=== PATIENT | female | born 1960 | race Caucasian/White ===

== ENCOUNTER 2023-09-28 18:27 | Inpatient (IN) | payer OTHER, SELFPAY ==
[2023-09-28] VITALS (10 sets, daily range): BP systolic 84–164; BP diastolic 44–93; BMI 20.1; BMI 21.3
[2023-09-28 13:45] LABS: % Basophils 0.3 % (0-2); % Eosinophils 1.9 % (0-6); % Immature Granulocytes 0.5 % (0-0.5); % Lymphocytes 15.6 % (20.5-51.1); % Monocytes 4.7 % (1.7-9.3); Absolute Basophils 0.1 10^3/uL (0-0.2); Absolute Eosinophils 0.3 10^3/uL (0-0.7); Absolute Immature Granulocytes 0.1 10^3/uL (0-0.05); Absolute Lymphocytes 2.3 10^3/uL (1.2-3.4); Absolute Monocytes 0.7 10^3/uL (0.1-0.6); Absolute Neutrophils 11.6 10^3/uL (1.4-6.5); Hematocrit 44.1 % (37.0-47.0); Hemoglobin 15.1 g/dL (12.0-16.0); Mean Corp Hgb Conc. 34.2 g/dL (33.0-37.0); Mean Corpuscular Hgb 31.3 pg (27.0-31.0); Mean Corpuscular Volume 91.3 fL (81.0-99.0); Mean Platelet Volume 9.7 fL (7.4-10.4); Nucleated Red Blood Cells % 0 %; Platelet Count 444 10^3/uL (130-400); Red Blood Cell Count 4.83 10^6/uL (4.20-5.40); Red Cell Dist. Width 13.1 % (11.5-14.5)
[2023-09-28 14:04] LABS: Blood Urea Nitrogen 49 mg/dl (7-17); Calcium 10.1 mg/dl (8.4-10.2); Carbon Dioxide 17 mmol/L (22-30); Chloride 106 mmol/L (98-107); Estimated Creatinine Clearance 18 ml/min; Glucose 153 mg/dl (70-99); Sodium 138 mmol/L (135-145); eGFR 20.24
[2023-09-28 14:41] LABS: Lactic Acid 1.2 mmol/L (0.7-2.0)
[2023-09-28 14:42] LABS: Lipase 183 U/L (23-300); Salicylate < 1.0 mg/dl (2.0-20.0)
[2023-09-28 14:44] LABS: Alcohol None Detected
[2023-09-28 14:53] LABS: Acetaminophen < 10 ug/ml (10-30)
[2023-09-28 14:55] LABS: COVID-19 Antigen Negative (Negative)
[2023-09-28 15:24] LABS: Troponin I 0.024 ng/ml
[2023-09-28 15:31] LABS: Urine Albumin 1+ (Neg - Trace); Urine Bilirubin 2+ (Negative); Urine Character Slightly Cloudy (Clear); Urine Color Yellow; Urine Glucose Negative (Negative); Urine Ketone 1+ (Negative); Urine Leukocyte Trace (Negative); Urine Nitrite Negative (Negative); Urine Occult Blood Trace (Negative); Urine Specific Gravity 1.025 (<1.030); Urine Urobilinogen 1+ (Neg - 1+)
[2023-09-28 15:35] LABS: Amphetamines Negative (Negative); Barbiturates Negative (Negative); Benzodiazepines Positive (Negative); Buprenorphine Negative (Negative); Cocaine Negative (Negative); Marijuana Positive (Negative); Methadone Negative (Negative); Methamphetamines Negative (Negative); Opiates Negative (Negative); Phencyclidine Negative (Negative); Tricyclic Antidepressants Positive (Negative)
[2023-09-28] MEDS: NSS 1000 IV ×2 (15:44→17:15)
[2023-09-28] MEDS: ZOFRAN 4 MG IV (15:46)
[2023-09-28 15:55] LABS: Fentanyl, Urine Negative (Negative)
[2023-09-28 15:58] LABS: ALT (SGPT) 23 U/L (0-35); AST (SGOT) 31 U/L (14-36); Albumin 4.7 g/dl (3.5-5.0); Alkaline Phosphatase 101 U/L (38-126); Direct Bilirubin 0.7 mg/dl (0.0-0.4); Potassium 4.8 mmol/L (3.5-5.1); Total Bilirubin 0.7 mg/dl (0.2-1.3); Total Protein 7.6 g/dl (6.3-8.2)
--- NOTE | 2023-09-28 15:58 | ED.GENMED ---
History of Present Illness
<Paola Fountain PA-C - Last Filed: 09/28/23 22:01>
General
Chief Complaint: Change in Mental Status
Source: patient and family
Exam Limitations: clinical condition
Time Seen by Provider: 09/28/23 13:33
Nursing documentation reviewed up to this point in time: agreed with
Travel History
Have you had any contact with someone who has COVID-19?: No
Do you have any symptoms of coronavirus? Fever > 100 degrees, chills, cough, shortness of breath, sore throat, loss of taste or smell, muscle aches, or headache?: No
History of Present Illness
History of Present Illness:
Patient presents with her son, she is not able to give much reliable history. She is 63 years old coming in for altered mental status, going on probably several days. She has a remote history of opiate dependence when her children were in their
teens. Patient was originally staying with someone and then got kicked out of that house, went to her daughter's house last week for 3 days from Wednesday to Wednesday, the and 24 September where she was found to be stumbling around the house and
seemingly intoxicated. The daughter ended up finding Valium tabs on the ground. She googled it as a pill identifier and they were 10 mg Valium's. She told her she could no longer stay there because daughter has a baby at home. so she has been
with her half sister since then. the half sister says she has been disheveled and goofy, then she may have fallen at 2 am, sister heard a thumb and pt was up walking around
then she woke up and checked on her and she was vomiting
pt is not known to drink alcohol
she struggles with depression and has been depressed
they are unclear if she is taking any of her meds, had a large bag of meds in her possession which are duplicates and exppired.
she has since sounds like he has been somehow getting Valium not prescribed to her
Patient's family member brought in prescriptions that the patient is been carrying around, it seems that she does not take her medications as there are many duplicates of her blood pressure and diabetic medication but in particular she has been
prescribed sertraline 50 mg tablets daily, buspirone 10 mg tablets twice a day, Seroquel either 50 or 100 mg at bedtime, Trileptal 150 every 12, trazodone 1 tablet 100 mg at bedtime, amitriptyline 50 mg at bedtime, fluoxetine 40 mg daily, bupropion
1 tablet daily 150 mg XL, and duloxetine 60 mg, these bottles are from a variable amounts of time, some from 2019 and are partially full
pt is wacky and not able to answer wel lireiably
she is tearful
dry looking mm
said she was nauseated
Past History
<Paola Fountain PA-C - Last Filed: 09/28/23 22:01>
Past History
ED Past Medical History: HTN, Hypercholesterolemia, Seizures and Psychiatric
Social History
Drug: Marijuana and Narcotics
Review of Systems
<Paola Fountain PA-C - Last Filed: 09/28/23 22:01>
Review of Systems
Other source history: family
All Other Systems: Not applicable
Phy Exam
<Paola Fountain PA-C - Last Filed: 09/28/23 22:01>
Physical Exam
Physical Exam:
GENERAL: Alert , tearful, wacky, shifting a lot, startles eaasily
HEAD: NCAT
EYE: pupils equal and reactive, no nystagmus, no photophobia
NECK: Supple,full rom, nontender, not stiff
ENT: o/p clr, very dry mouth
CARDIAC: Regular rate and rhythm . no edema
LUNGS: Clear breath sounds bilaterally, no acute respiratory distress, no wheezes/rales/rhonchi
ABDOMEN: Soft, without focal tenderness, no r/g, no cvat
NEUROLOGICAL: Alert and orientedx 2; disoriented to time and situation; trouble focusing; tangential; tearful; cn intact, no facial asymmetry, 5/5 strength in UE/LE, sensation intact, neg pronator drift
SKIN: Warm and dry, skin intact.
MUSCULOSKELETAL: No edema, well perfused.
PSYCH: Normal and appropriate interaction.
Course
<Paola Fountain PA-C - Last Filed: 09/28/23 22:01>
Orders/Labs/Results
Orders:
Orders
09/28/23 13:37
Basic Metabolic Panel Urgent
Complete Blood Count/With Diff Urgent
Glycohemoglobin (HgbA1c) Urgent
09/28/23 13:55
CT Head W/o Iv Contrast Urgent
Comment:
Reason For Exam: ams, unclear if fall;
Cardiac Monitoring- Treatment ONCE
Straight cath- Treatment ONCE
0.9% Sodium Chloride 1000 ml [Nss] 1,000 ml IV BOLUS
Ondansetron Injectable [Zofran] 4 mg IV NOW STA
09/28/23 13:56
Electrocardiogram (*1) Stat
Reason for Study: Other
Other Reason for Exam: neuro symptoms
EKG- Treatment ONCE
09/28/23 14:13
CT Chest/abd/pel Wo Iv Cont Urgent
Comment:
Reason For Exam: ams, fidencio, vomiting, possible fall
09/28/23 14:19
Acetaminophen Urgent
Alcohol Urgent
Lactic Acid Urgent
Lipase Urgent
Dgvwy-Xess-Cpqoqpp Urgent
Comment: ADD ON
Magnesium Urgent
Comment: ADD ON
Phosphorus Urgent
Comment: ADD ON
Potassium Urgent
Comment: ADD ON
Salicylate Urgent
Blood Culture Q30M
HAL Source: Blood/Venous
Specimen Description:
Influenza A+B Rapid Molecular Urgent
HAL Source: Nasal Swab
Specimen Description:
09/28/23 14:21
COVID-19 Antigen Urgent
Source: Nasal Swab
09/28/23 14:49
Troponin I Urgent
Blood Culture Q30M
HAL Source: Blood/Venous
Specimen Description:
09/28/23 Dinner
NPO
Allow oral meds: No
Allow clear liquids: No
09/28/23 15:04
Drug Screen, Urine [Urine Drug Abuse Screen] Urgent
Date Specimen was Collected: 09/28/23
Time Specimen was Collected: 15:02
Fentanyl, Urine Urgent
Urinalysis Reflex To Culture Urgent
Date Specimen was Collected: 09/28/23
Time Specimen was Collected: 15:02
Urine Creatinine Urgent
Date Specimen was Collected: 09/28/23
Time Specimen was Collected: 15:02
Comment: ADD ON
Urine Microscopic Reflex Cult Urgent
Urine Sodium Urgent
Date Specimen was Collected: 09/28/23
Time Specimen was Collected: 15:02
Comment: ADD ON
Urine Culture Urgent
HAL Source: U
Specimen Description:
Date Specimen was Collected: 09/28/23
Time Specimen was Collected: 15:02
09/28/23 15:07
Add On- LAB Urgent
Comments:: to 14:19 specimen (1st specimen was reported hemolyzed)
Tests Added?: K + LFT's
09/28/23 15:58
diazePAM [Valium Injection] 5 mg IV NOW STA
09/28/23 16:01
diazePAM [Valium Injection] 2 mg IV NOW STA
09/28/23 16:32
CefTRIAXone [Rocephin] 1,000 mg IV NOW STA
09/28/23 17:04
Add On- LAB Urgent
Tests Added?: urine sodium, urine creatinine
09/28/23 17:05
0.9% Sodium Chloride 1000 ml [Nss] 1,000 ml IV BOLUS
09/28/23 17:22
Add On- LAB Routine
Tests Added?: magnesium, phosphorous
09/28/23 17:43
Admit/Transfer Patient As Directed
Co-Sign Provider:
Level of Care: Inpatient admission
Assign to:: Telemetry
Physician / Group: Jen Negrete
Diagnosis: benzodiazepine withdrawal
Reason for Telemetry: Chest Pain syndromes
Date to Stop Telemetry: 09/30/23
Time to Stop Telemetry: 11:00
Reason for Hospitalization: benzodiazepine withdrawal
Expected length of stay greater than two midnights?: Yes
ELOS- Estimated Length of Stay in days: 3
I certify the patient meets the requirements for IP care: Yes
09/28/23 17:45
Code Status As Directed
Resuscitation Status: Full Code
09/28/23 18:06
Add On- LAB Urgent
Tests Added?: alcohol
09/28/23 20:31
0.9% Sodium Chloride [Nss (Preservative Free)] See Protocol IV PRN PRN
Acetaminophen [Tylenol/Feverall] 650 mg RECTAL Q4HPRN PRN
Acetaminophen [Tylenol] 650 mg PO Q4HPRN PRN
Dextrose 50%-Water [Dextrose 50% Syringe] 12.5 grams IV [id number] PRN
FOLic ACID [Folvite] 1 mg 0.9% Sodium Chloride 50 ml [Nss] 50 ml IV DAILYPRN
Glucagon [GlucaGen] 1 mg IM PRN PRN
Heparin 5,000 units SC Q12
Lactated Ringers [Lr] 1,000 ml IV 125 mls/hr
Lorazepam [Ativan] 1 mg IV Q1HPRN PRN
Lorazepam [Ativan] 1 mg IV Q2HPRN PRN
Lorazepam [Ativan] 2 mg IV Q1HPRN PRN
Thiamine Injection 200 mg IV Q12
09/28/23 20:31
Add On- LAB Routine
Tests Added?: HgbA1C to today's lab
Case Management Consult Once
Case Management Consult: Other
Comment: Substance abuse counseling
DIETARY CONSULT Routine
Reason for Consult: Nutrition support, possible refeeding guidelines
PSYCHIATRY CONSULT Routine
Consulting Provider: Josh Camilo
Was physician already notified: Yes
Activity As Directed
Activity Level: As Tolerated
Bedside Glucose Monitoring As Directed
Frequency: AC&HS
Comment: Change to q6h if pt on TPN, tube feeding or not eating
MSAS SCORE As Directed
MSAS Score 0-4: Repeat MSAS every 2 hours until 0-4 for three consecutive assessments, then every 4 hours x 48
hours.
MSAS Score 5-7: For MILD withdrawl symptoms. Repeat MSAS and RASS every 2 hours
MSAS Score 8-11: For MODERATE withdrawal symptoms. Repeat MSAS and RASS every 1 hour. Consider ICU or IMU
level of care.
MSAS Score > 11: For SEVERE withdrawal symptoms. Repeat MSAS and RASS every 1 hour. Notify provider, consider
ICU level of care.
MSAS Additional Instructions: If no improvement or no decrease in score from severe to moderate within 12
hours, consult psychiatry
MSAS Notify Provider: Notify provider if patient requires more than 10 mg of Lorazepam in eight hour period.
Nursing to Place Non Medication Order As Directed
Physician Order: please do swallow screen when patient more awake and have cross cover order diabetic diet if
passes
Vital Signs As Directed
Frequency: Per unit guidelines
Speech Screening from [facility] Routine
DX Deep Vein Thrombosis Video Routine
09/29/23 06:00
Complete Blood Count/With Diff IN AM
Comprehensive Metabolic Panel IN AM
Magnesium IN AM
TSH IN AM
Vitamin B12 IN AM
09/29/23 07:30
Insulin Aspart Corrective Low [Novolog Flexpen-Low Resistance] See Protocol SC AC
09/29/23 08:00
FOLic ACID [Folvite] 1 mg PO DAILY
09/29/23 18:00
CefTRIAXone [Rocephin] 1,000 mg IV Q24H
09/30/23 11:00
DC Protocol for Telemetry ONCE
10/01/23 20:00
Thiamine HCl [Vitamin B1] 100 mg PO BID
Abnormal Lab Results
09/28/23 09/28/23 09/28/23
13:37 14:19 15:04
WBC 15.0 H 10^3/uL
(4.8-10.8)
MCH 31.3 H pg
(27.0-31.0)
Plt Count 444 H 10^3/uL
(130-400)
Abs Immat Gran (auto) 0.1 H 10^3/uL
(0-0.05)
Absolute Neuts (auto) 11.6 H 10^3/uL
(1.4-6.5)
Absolute Monos (auto) 0.7 H 10^3/uL
(0.1-0.6)
Neutrophils % 77.0 H %
(42.2-75.2)
Lymphocytes % 15.6 L %
(20.5-51.1)
Carbon Dioxide 17 L mmol/L
(22-30)
BUN 49 H mg/dl
(7-17)
Creatinine 2.6 H mg/dL
(0.6-1.0)
Glucose 153 H mg/dl
(70-99)
Phosphorus 7.5 H mg/dl
(2.5-4.5)
Direct Bilirubin 0.7 H mg/dl
(0.0-0.4)
Urine Ketones 1+ A
(Negative)
Ur Occult Blood Reflex Trace A
(Negative)
Urine Bilirubin 2+ A
(Negative)
Leukocyte Esterase Rfl Trace A
(Negative)
Urine RBC 3-6 A /HPF
(0-2)
Urine WBC (Reflex) 21-25 A /HPF
(0-5)
Urine Bacteria (Reflex) Moderate A
(Negative)
Urine Albumin (Reflex) 1+ A
(Neg - Trace)
Salicylates < 1.0 L mg/dl
(2.0-20.0)
Acetaminophen < 10 L ug/ml
(10-30)
Ur Tricyclics Screen Positive H
(Negative)
U Benzodiazepines Scrn Positive H
(Negative)
U Marijuana (THC) Screen Positive H
(Negative)
09/28/23 13:37
09/28/23 14:19
Vital Signs
Initial and Last Documented VS:
Initial Vital Signs
Temp Pulse Resp BP Pulse Ox
97.7 F 61 19 124/93 96
09/28/23 12:24 09/28/23 12:24 09/28/23 12:24 09/28/23 12:24 09/28/23 12:24
Last Documented Vital Signs
Temp Pulse Resp BP Pulse Ox
97.4 F 72 16 164/86 98
09/28/23 21:05 09/28/23 21:05 09/28/23 21:05 09/28/23 21:05 09/28/23 21:05
<Robson Rae MD - Last Filed: 09/28/23 17:28>
Orders/Labs/Results
Orders:
Orders
09/28/23 13:37
Basic Metabolic Panel Urgent
Complete Blood Count/With Diff Urgent
Glycohemoglobin (HgbA1c) Urgent
09/28/23 13:55
CT Head W/o Iv Contrast Urgent
Comment:
Reason For Exam: ams, unclear if fall;
Cardiac Monitoring- Treatment ONCE
Straight cath- Treatment ONCE
0.9% Sodium Chloride 1000 ml [Nss] 1,000 ml IV BOLUS
Ondansetron Injectable [Zofran] 4 mg IV NOW STA
09/28/23 13:56
Electrocardiogram (*1) Stat
Reason for Study: Other
Other Reason for Exam: neuro symptoms
EKG- Treatment ONCE
09/28/23 14:13
CT Chest/abd/pel Wo Iv Cont Urgent
Comment:
Reason For Exam: ams, fidencio, vomiting, possible fall
09/28/23 14:19
Acetaminophen Urgent
Alcohol Urgent
Lactic Acid Urgent
Lipase Urgent
Ulebs-Kite-Biumkrg Urgent
Comment: ADD ON
Magnesium Urgent
Comment: ADD ON
Phosphorus Urgent
Comment: ADD ON
Potassium Urgent
Comment: ADD ON
Salicylate Urgent
Blood Culture Q30M
HAL Source: Blood/Venous
Specimen Description:
Influenza A+B Rapid Molecular Urgent
HAL Source: Nasal Swab
Specimen Description:
09/28/23 14:21
COVID-19 Antigen Urgent
Source: Nasal Swab
09/28/23 14:49
Troponin I Urgent
Blood Culture Q30M
HAL Source: Blood/Venous
Specimen Description:
09/28/23 Dinner
NPO
Allow oral meds: No
Allow clear liquids: No
09/28/23 15:04
Drug Screen, Urine [Urine Drug Abuse Screen] Urgent
Date Specimen was Collected: 09/28/23
Time Specimen was Collected: 15:02
Fentanyl, Urine Urgent
Urinalysis Reflex To Culture Urgent
Date Specimen was Collected: 09/28/23
Time Specimen was Collected: 15:02
Urine Creatinine Urgent
Date Specimen was Collected: 09/28/23
Time Specimen was Collected: 15:02
Comment: ADD ON
Urine Microscopic Reflex Cult Urgent
Urine Sodium Urgent
Date Specimen was Collected: 09/28/23
Time Specimen was Collected: 15:02
Comment: ADD ON
Urine Culture Urgent
HAL Source: U
Specimen Description:
Date Specimen was Collected: 09/28/23
Time Specimen was Collected: 15:02
09/28/23 15:07
Add On- LAB Urgent
Comments:: to 14:19 specimen (1st specimen was reported hemolyzed)
Tests Added?: K + LFT's
09/28/23 15:58
diazePAM [Valium Injection] 5 mg IV NOW STA
09/28/23 16:01
diazePAM [Valium Injection] 2 mg IV NOW STA
09/28/23 16:32
CefTRIAXone [Rocephin] 1,000 mg IV NOW STA
09/28/23 17:04
Add On- LAB Urgent
Tests Added?: urine sodium, urine creatinine
09/28/23 17:05
0.9% Sodium Chloride 1000 ml [Nss] 1,000 ml IV BOLUS
09/28/23 17:22
Add On- LAB Routine
Tests Added?: magnesium, phosphorous
09/28/23 17:43
Admit/Transfer Patient As Directed
Co-Sign Provider:
Level of Care: Inpatient admission
Assign to:: Telemetry
Physician / Group: Jen Negrete
Diagnosis: benzodiazepine withdrawal
Reason for Telemetry: Chest Pain syndromes
Date to Stop Telemetry: 09/30/23
Time to Stop Telemetry: 11:00
Reason for Hospitalization: benzodiazepine withdrawal
Expected length of stay greater than two midnights?: Yes
ELOS- Estimated Length of Stay in days: 3
I certify the patient meets the requirements for IP care: Yes
09/28/23 17:45
Code Status As Directed
Resuscitation Status: Full Code
09/28/23 18:06
Add On- LAB Urgent
Tests Added?: alcohol
09/28/23 20:31
0.9% Sodium Chloride [Nss (Preservative Free)] See Protocol IV PRN PRN
Acetaminophen [Tylenol/Feverall] 650 mg RECTAL Q4HPRN PRN
Acetaminophen [Tylenol] 650 mg PO Q4HPRN PRN
Dextrose 50%-Water [Dextrose 50% Syringe] 12.5 grams IV [id number] PRN
FOLic ACID [Folvite] 1 mg 0.9% Sodium Chloride 50 ml [Nss] 50 ml IV DAILYPRN
Glucagon [GlucaGen] 1 mg IM PRN PRN
Heparin 5,000 units SC Q12
Lactated Ringers [Lr] 1,000 ml IV 125 mls/hr
Lorazepam [Ativan] 1 mg IV Q1HPRN PRN
Lorazepam [Ativan] 1 mg IV Q2HPRN PRN
Lorazepam [Ativan] 2 mg IV Q1HPRN PRN
Thiamine Injection 200 mg IV Q12
09/28/23 20:31
Add On- LAB Routine
Tests Added?: HgbA1C to today's lab
Case Management Consult Once
Case Management Consult: Other
Comment: Substance abuse counseling
DIETARY CONSULT Routine
Reason for Consult: Nutrition support, possible refeeding guidelines
PSYCHIATRY CONSULT Routine
Consulting Provider: Josh Camilo
Was physician already notified: Yes
Activity As Directed
Activity Level: As Tolerated
Bedside Glucose Monitoring As Directed
Frequency: AC&HS
Comment: Change to q6h if pt on TPN, tube feeding or not eating
MSAS SCORE As Directed
MSAS Score 0-4: Repeat MSAS every 2 hours until 0-4 for three consecutive assessments, then every 4 hours x 48
hours.
MSAS Score 5-7: For MILD withdrawl symptoms. Repeat MSAS and RASS every 2 hours
MSAS Score 8-11: For MODERATE withdrawal symptoms. Repeat MSAS and RASS every 1 hour. Consider ICU or IMU
level of care.
MSAS Score > 11: For SEVERE withdrawal symptoms. Repeat MSAS and RASS every 1 hour. Notify provider, consider
ICU level of care.
MSAS Additional Instructions: If no improvement or no decrease in score from severe to moderate within 12
hours, consult psychiatry
MSAS Notify Provider: Notify provider if patient requires more than 10 mg of Lorazepam in eight hour period.
Nursing to Place Non Medication Order As Directed
Physician Order: please do swallow screen when patient more awake and have cross cover order diabetic diet if
passes
Vital Signs As Directed
Frequency: Per unit guidelines
Speech Screening from [facility] Routine
DX Deep Vein Thrombosis Video Routine
09/29/23 06:00
Complete Blood Count/With Diff IN AM
Comprehensive Metabolic Panel IN AM
Magnesium IN AM
TSH IN AM
Vitamin B12 IN AM
09/29/23 07:30
Insulin Aspart Corrective Low [Novolog Flexpen-Low Resistance] See Protocol SC AC
09/29/23 08:00
FOLic ACID [Folvite] 1 mg PO DAILY
09/29/23 18:00
CefTRIAXone [Rocephin] 1,000 mg IV Q24H
09/30/23 11:00
DC Protocol for Telemetry ONCE
10/01/23 20:00
Thiamine HCl [Vitamin B1] 100 mg PO BID
Abnormal Lab Results
09/28/23 09/28/23 09/28/23
13:37 14:19 15:04
WBC 15.0 H 10^3/uL
(4.8-10.8)
MCH 31.3 H pg
(27.0-31.0)
Plt Count 444 H 10^3/uL
(130-400)
Abs Immat Gran (auto) 0.1 H 10^3/uL
(0-0.05)
Absolute Neuts (auto) 11.6 H 10^3/uL
(1.4-6.5)
Absolute Monos (auto) 0.7 H 10^3/uL
(0.1-0.6)
Neutrophils % 77.0 H %
(42.2-75.2)
Lymphocytes % 15.6 L %
(20.5-51.1)
Carbon Dioxide 17 L mmol/L
(22-30)
BUN 49 H mg/dl
(7-17)
Creatinine 2.6 H mg/dL
(0.6-1.0)
Glucose 153 H mg/dl
(70-99)
Phosphorus 7.5 H mg/dl
(2.5-4.5)
Direct Bilirubin 0.7 H mg/dl
(0.0-0.4)
Urine Ketones 1+ A
(Negative)
Ur Occult Blood Reflex Trace A
(Negative)
Urine Bilirubin 2+ A
(Negative)
Leukocyte Esterase Rfl Trace A
(Negative)
Urine RBC 3-6 A /HPF
(0-2)
Urine WBC (Reflex) 21-25 A /HPF
(0-5)
Urine Bacteria (Reflex) Moderate A
(Negative)
Urine Albumin (Reflex) 1+ A
(Neg - Trace)
Salicylates < 1.0 L mg/dl
(2.0-20.0)
Acetaminophen < 10 L ug/ml
(10-30)
Ur Tricyclics Screen Positive H
(Negative)
U Benzodiazepines Scrn Positive H
(Negative)
U Marijuana (THC) Screen Positive H
(Negative)
09/28/23 13:37
09/28/23 14:19
Vital Signs
Initial and Last Documented VS:
Initial Vital Signs
Temp Pulse Resp BP Pulse Ox
97.7 F 61 19 124/93 96
09/28/23 12:24 09/28/23 12:24 09/28/23 12:24 09/28/23 12:24 09/28/23 12:24
Last Documented Vital Signs
Temp Pulse Resp BP Pulse Ox
97.4 F 72 16 164/86 98
09/28/23 21:05 09/28/23 21:05 09/28/23 21:05 09/28/23 21:05 09/28/23 21:05
<Paola Fountain PA-C - Last Filed: 09/28/23 22:01>
MDM/Problems Addressed
Differential Diagnosis Includes:
polypharmacy, overdose, intoxication, bz withdrawal, uti, head injury
MDM/Problems Addressed:
[place]o [place] 63 y/o M h/o depression, htn, dm; has been seen by family recently taking 10 mg valiums, many at a time, acting intoxicated; kicked out of some family houses and boyfriend houses recently; family rounded up all the valium they could
find and kept it from her the past 3 days; pt has been wacky, wobbly, a little agitated, tearful, vomiting; i was presuming after hearing that that she could be having some degree of tim withdrawal; she also could be polypharmacy, she takes TCA and
other antidepressants; vitals stable; qtc < 500, cr 2.4 no old cr to compare but no known kidney disease, looks dry; was a little agitated and confused, trouble focusing for me; but otherwise nonfocal neuro exam; ct head/c/a/p neg; uds + for tca,
thc and bz; i ordered 2 mg iv valium jsut in case she was having some bz withdrawal, she was easily drowsy from 5 mg dose.
she is sleepy now but stable; getting ivf; will need psych consult, she isn't having SI but was very depressed; denied any drug abuse
<Paola Fountain PA-C - Last Filed: 09/28/23 22:01>
*Critical Care Note
Total Time (30-74mins, 75-104mins- exclusive of procedures): Not Applicable
ED Attending Note
<Paola Fountain PA-C - Last Filed: 09/28/23 22:01>
-
Portions of this chart may have been created with voice recognition software.� Occasional wrong word or��sound alike� substitutions may have occurred due to the inherent limitations of voice recognition software.
<Robson Rae MD - Last Filed: 09/28/23 17:28>
ED Attending Note
Patient seen and examined by attending physician: Yes
ED Attending Note:
I have seen and evaluated the patient with a prpi-wz-vlke encounter. I have spoken to the advance practicer provider and involved in the medical history, the physical exam, medical decision making.
Evaluation and management service: agree unless noted differently below.
Results interpretation: agree unless noted differently below.
Focused HPI: 63-year-old female with past medical history of polysubstance use (opiates in the past, Valium more recently, also question alcohol) who presents to the emergency room with her family via EMS for evaluation of confusion. Apparently
patient has been bouncing around living with different family members recently in part due to her substance abuse issues mainly with Valium. She reportedly is not prescribed the Valium and obtains illicitly. Apparently this morning patient's
stfwnw-yo-spv found her vomiting and confused. Called EMS to bring her to the hospital. There was apparently a confrontation with patient's daughter recently over the weekend during which daughter threw out all patient's Valium. Unclear whether
she had other drugs available to her and unclear whether there was any ingestion this morning. She has apparently been somewhat depressed recently. There was a question of whether she may have fallen and hurt her head.
Physical exam: Alert but confused. Vital signs normal. No cardiac rubs gallops or murmurs. Lungs clear to auscultation bilaterally. No signs of trauma to the head. Pupils are 4 mm and reactive to light bilaterally. Mucous membranes slightly
dry. Skin slightly dry. No notable edema in her extremities.
Medical Decision Makin-year-old female presents for evaluation of confusion in the setting of recent issues with substance abuse. Vital signs here within normal limits. Exam as above. Labs were sent off including a CBC which shows a slight
leukocytosis and a CMP which shows a creatinine of 2.6�unclear what patient's baseline is. We sent Tylenol and salicylate levels which were both negative. Urinalysis was questionable for infection�will cover given her leukocytosis and change in
mental status. Her UDS was positive for tricyclic, benzos, marijuana. Alcohol level was negative. We sent for CT of the head as well as the chest/abdomen/pelvis given questionable fall and there was no clear acute pathology.
Meningitis/encephalitis always a consideration but patient afebrile with a supple neck somewhat lower suspicion�picture seems more consistent with likely confusion related to polysubstance use. Will hold on lumbar puncture for now. Benzodiazepine
withdrawal is also a consideration given reported history of daughter throwing away patient's Valium however there was no tachycardia or hypertension here�she was given a low-dose of Valium and appeared much more calm subsequently. Regardless will
need monitoring for return to baseline, further workup as indicated should mental status worsen. Case discussed with hospitalist for admission.
Discharge Plan
Departure
Patient Disposition: Admit
Date of Disposition: 09/28/23
Time of Disposition: 16:01
Admit to: Telemetry
Presentation/result/management discussed w/ accepting MD/DO: Hospitalist
Patient with high blood pressure during this ER visit?: No
Condition: Fair
Covid-19: Not Applicable
Discharge Problem:
FIDENCIO (acute kidney injury), Polypharmacy, Benzodiazepine abuse
Interventions
Interventions:
*Risk Screen - Suicide Last Done: 09/28/23 20:42
*Neglect/Abuse Screening Last Done: 09/28/23 14:00
ED- Fall Risk Assessment Last Done: 09/28/23 15:05
*ED COVID-19 Vaccine History Last Done: 09/28/23 20:38
*Nursing Disposition Last Done: 09/28/23 20:20
ED- Neurological Assessment Last Done: 09/28/23 15:05
Discharge Date and Time
Discharge Date/Time: 09/28/23 20:20
[2023-09-28] MEDS: VALIUM INJECTION 5 MG IV (16:06)
[2023-09-28 16:27] LABS: Urine Mucus Moderate
[2023-09-28 16:28] LABS: Urine Bacteria Moderate (Negative); Urine Hyaline Cast >15 /LPF (0-2); Urine Urothelial Cell >30 /LPF (FEW); Urine White Cell 21-25 /HPF (0-5)
--- NOTE | 2023-09-28 16:31 | PHANOTE ---
Med Rec Note:
Multiple medication bottles given to pharmacy technicians by family. Pt had a mixture of recently filled and medications. Unknown what medications pt is actually taking, medications entered into home med list that were filled within the
last year.
Pt had these medications mixed in:
Januvia 100mg x3 bottles, ,Glyburide- Metformin 5-500mg, Metformin 500mg
Folic Acid 1mg x6 bottles
Atorvastatin 80mg, Simvastatin 10mg x3 bottles
Nateglinide 60mg, Nateglinide 120mg x2 bottles
Ondansetron 4mg,
Fluoxetine 40mg x2 bottles, Buspirone 10mg x3 bottles, Bupropion XL 150mg, Sertraline 50mg x5 bottles
Metoprolol Tart 100mg x3 bottles, Metoprolol Succinate 25mg, Amlodipine 10mg, Losartan-HCTZ 100-25mg x7 bottles
Medications given back to family, sorted into , diabetic supplies and not .
--- NOTE | 2023-09-28 16:53 | HPS.HSE ---
Family Physician
-
Family Physician: NOT KNOW UNKNOWN - PT DOES
Chief Complaint
-
change in mental status
History of Present Illness
Ms. Charmaine Savage is a 63 yo woman with hx anxiety, HTN, DM who was brought in by family for being agitated, altered, + vomiting. Patient is sedated on my interview. She is seen at bedside with her two sons who provide history.
Patient recently broke up with her boyfriend and so hasn't had a constant place to live. She has been living at family member's houses. Last week she was at her daughter's who noticed that patient had unprescribed Valium. She took them and
flushed them down the toilet. She then left and stayed at her half sister's house. Patient noticed to be increasingly confused, + vomiting. This morning she was more agitated and so EMS was called.
Per ER report, family brought in medications for patient which include:
sertraline 50 mg tablets daily, buspirone 10 mg tablets twice a day, Seroquel either 50 or 100 mg at bedtime, Trileptal 150 every 12, trazodone 1 tablet 100 mg at bedtime, amitriptyline 50 mg at bedtime, fluoxetine 40 mg daily, bupropion 1 tablet
daily 150 mg XL, and duloxetine 60 mg
Medical History
Past Medical History
Past Medical History: Reports HTN, NIDDM and Psychiatric (anxiety/depression)
Past Surgical History: Reports Other
Social History
Drug: Marijuana
Family History
Family History: Not pertinent
Allergies / Home Medications
Allergies reflects when Allergies were last updated in [facility].
Home Medications with original date entered in [facility]
Allergy/Medication List:
Allergies
Allergy/AdvReac Type Severity Reaction Status Date / Time
No Known Allergies Allergy Unverified 09/28/23 16:02
Home Medications
amitriptyline 50 mg tablet 50 mg PO HS 09/28/23
amlodipine 5 mg tablet 5 mg PO DAILY 09/28/23
aspirin 81 mg tablet,delayed release 81 mg PO DAILY 09/28/23
duloxetine 60 mg capsule,delayed release 60 mg PO DAILY 09/28/23
fexofenadine 180 mg tablet 180 mg PO DAILY 09/28/23
folic acid 1 mg tablet 1 mg PO DAILY 09/28/23
losartan 100 mg-hydrochlorothiazide 25 mg tablet 1 tab PO DAILY 09/28/23
metformin 500 mg tablet 500 mg PO BID 09/28/23
multivitamin-ferrous fumarate-folic acid 18 mg-400 mcg tablet (Centrum Women) 1 tab PO DAILY 09/28/23
omega 3-cap-avd-fish oil 1,000 mg (120 mg-180 mg) capsule (Fish Oil) 1 cap PO TID 09/28/23
oxcarbazepine 150 mg tablet 150 mg PO Q12H 09/28/23
pantoprazole 40 mg tablet,delayed release 40 mg PO DAILY 09/28/23
quetiapine 100 mg tablet 100 mg PO HS 09/28/23
quetiapine 50 mg tablet 50 mg PO HS 09/28/23
quinine-vitamin E capsule 1 - 2 cap PO Q4H PRN leg cramps 09/28/23
sertraline 50 mg tablet 50 mg PO HS 09/28/23
sitagliptin phosphate 100 mg tablet (Januvia) 100 mg PO DAILY 09/28/23
tirzepatide 7.5 mg/0.5 mL subcutaneous pen injector (Mounjaro) 7.5 mg SC WEEKLY 09/28/23
trazodone 100 mg tablet 100 mg PO HS 09/28/23
*awaiting med rec confirmation
Review of Systems
-
History Source: Patient
A 12 point ROS was completed and negative except as noted: Yes
Physical Exam
Vital Signs
Vital Signs
Temp Pulse Resp BP Pulse Ox
97.7 F 65 16 114/47 98
09/28/23 12:24 09/28/23 16:30 09/28/23 14:30 09/28/23 16:00 09/28/23 16:00
Physical Exam
General: No Apparent Distress and Other (lethargic post valium )
HEENT: PERRLA
Respiratory: Clear; No Wheezes
Cardiac: S1/S2 and Regular Rhythm
GI: Soft and Non Tender
Musculoskeletal: No Edema
Skin: Warm and Dry; No Rash
Neuro: Sedated
Psych: Calm
Laboratory Results
-
09/28/23 13:37
09/28/23 14:19
Laboratory Results
Lactic Acid 1.2 mmol/L (0.7-2.0) 09/28/23 14:19
Total Bilirubin 0.7 mg/dl (0.2-1.3) 09/28/23 14:19
AST 31 U/L (14-36) 09/28/23 14:19
ALT 23 U/L (0-35) 09/28/23 14:19
Alkaline Phosphatase 101 U/L (38-126) 09/28/23 14:19
Troponin I 0.024 ng/ml 09/28/23 14:49
Lipase 183 U/L (23-300) 09/28/23 14:19
Data Reviewed
-
Diagnostic Radiology: Report Reviewed by me
Lab Data: Labs Reviewed by me
Impression/Plan
-
Ms. Charmaine Savage is a 63 yo woman with hx anxiety, HTN, DM who was brought in by family for being agitated, altered, tearful in setting of likely benzodiazepine withdrawal.
Triage VS: T 97.7, P 61, RR 19, BP 124/93, SpO2 96%
LABS: WBC 15, Hg 15.1, PLT 444, Na 138, K+ 4.8, CO2 17, BUN 49, Cr 2.6, Glucose 153, salicylates < 1; tylenol < 10
covid negative
flu negative
HEAD CT
IMPRESSION:
No evidence of acute intracranial abnormality.
chest/abdomen/pelvis CT
IMPRESSION: Coronary artery calcifications are present. Please correlate with symptoms of and risk factors for coronary artery disease, with further workup as clinically appropriate.
Mild aortic valvular calcification is noted.
1.5 cm bulla within the inferior aspect of the right middle lobe of the lung.
Status post cholecystectomy with no evidence for biliary ductal dilation.
Mild fatty infiltration of the liver.
Questionable subtle nodular contour of the anterior margin of the left lobe of the liver, and raises the possibility of subtle cirrhosis, although considered a soft finding.
Suggestion of predominantly left-sided fibroid with exophytic component within the uterus, diameter of approximately 6 cm, somewhat limited evaluation without contrast.
Colonic diverticula with no CT evidence of diverticulitis.
MAR: ativan, IVF, IV Zofran, IV Ceftriaxone
Benzodiazepine Withdrawal
Acute Confusion
-patient s/p valium in ER, now sedated
-admit to telemetry
-MSAS with PRN ativan
-psychiatry consult
-IV fluids
-IV thiamine/folate
Acute Kidney Injury
-per sons, patient recently started Ozempic. Vomiting may be from this drug versus withdrawal
-hold Ozempic
-IVF
-F/U urine studies
-daily BMP
Depression
-unclear home meds. need to discuss with patient when she wakes up
-psychiatry consult
-NPO for now
possible UTI
-IV Ceftriaxone given in ER
-continue for now
HTN
DM
-ISS low
*awaiting home med rec
DVT PPx hep subQ
FULL CODE
76 minutes spent on patient evaluation, medical decision making, coordination of care
[2023-09-28] MEDS: ROCEPHIN 1000 MG IV (17:15)
[2023-09-28 18:21] LABS: Urine Sodium 34 mmol/L (30-90)
[2023-09-28 18:32] LABS: Magnesium 2.3 mg/dl (1.6-2.3); Phosphorus 7.5 mg/dl (2.5-4.5)
[2023-09-28] MEDS: HEPARIN 5000 UNITS SC (21:51)
[2023-09-28] MEDS: THIAMINE INJECTION 200 MG IV (21:51)
[2023-09-28] MEDS: LR 1000 IV (22:29)
[2023-09-28] MEDS: ATIVAN 1 MG IV (22:51)
--- NOTE | 2023-09-29 01:07 | PTCARENOTE ---
RN clarified with STAVE LOG RIPSAW OPERATOR about MSAS monitoring vs COWS. Per STAVE LOG RIPSAW OPERATOR continue MSAS monitoring with Ativan.
[2023-09-29 03:21] VITALS: BP 131/70
[2023-09-29 07:00] VITALS: BP 145/76
[2023-09-29 07:16] LABS: ALT (SGPT) 17 U/L (0-35); AST (SGOT) 23 U/L (14-36); Albumin 3.6 g/dl (3.5-5.0); Alkaline Phosphatase 85 U/L (38-126); Blood Urea Nitrogen 39 mg/dl (7-17); Calcium 8.6 mg/dl (8.4-10.2); Carbon Dioxide 18 mmol/L (22-30); Chloride 114 mmol/L (98-107); Estimated Creatinine Clearance 31 ml/min; Glucose 95 mg/dl (70-99); Potassium 4.3 mmol/L (3.5-5.1); Sodium 142 mmol/L (135-145); Total Bilirubin 0.4 mg/dl (0.2-1.3); eGFR 39.16
[2023-09-29 07:42] LABS: TSH 0.25 uIU/ml (0.47-4.68)
[2023-09-29 07:59] LABS: Glucose - Point of Care 116 mg/dl (70-99)
[2023-09-29 08:01] LABS: Vitamin B12 > 1000 pg/ml (239-931)
[2023-09-29] MEDS: NOVOLOG FLEXPEN-LOW RESISTANCE SC ×3 (08:18→17:16)
[2023-09-29 08:21] LABS: % Basophils 0.5 % (0-2); % Eosinophils 3.1 % (0-6); % Immature Granulocytes 0.3 % (0-0.5); % Lymphocytes 37.5 % (20.5-51.1); % Monocytes 7.3 % (1.7-9.3); % Neutrophils 51.3 % (42.2-75.2); Absolute Eosinophils 0.2 10^3/uL (0-0.7); Absolute Lymphocytes 2.2 10^3/uL (1.2-3.4); Absolute Monocytes 0.4 10^3/uL (0.1-0.6); Hematocrit 33.8 % (37.0-47.0); Mean Corp Hgb Conc. 34.6 g/dL (33.0-37.0); Mean Corpuscular Hgb 32.1 pg (27.0-31.0); Mean Corpuscular Volume 92.6 fL (81.0-99.0); Mean Platelet Volume 10.1 fL (7.4-10.4); Nucleated Red Blood Cells % 0 %; Platelet Count 288 10^3/uL (130-400); Red Blood Cell Count 3.65 10^6/uL (4.20-5.40); White Blood Cell Count 5.8 10^3/uL (4.8-10.8)
[2023-09-29 08:42] LABS: Hemoglobin 11.7 g/dL (12.0-16.0)
[2023-09-29] MEDS: NSS (PRESERVATIVE FREE) 0.5 ML IV ×3 (09:36→23:54)
[2023-09-29] MEDS: ATIVAN 1 MG IV ×3 (09:36→23:55)
[2023-09-29] MEDS: HEPARIN 5000 UNITS SC ×2 (09:37→20:04)
[2023-09-29] MEDS: THIAMINE INJECTION 200 MG IV ×2 (09:37→20:04)
[2023-09-29] MEDS: FOLVITE 1 MG PO (09:37)
[2023-09-29 09:42] LABS: Glycohemoglobin (HgbA1c) 7.8 % (4.0-5.6)
[2023-09-29] MEDS: LR IV (09:43)
--- NOTE | 2023-09-29 11:32 | W.PN.HOSP.TC ---
Today's Communication/Plan
-
see plan
*called son, Ed, no one picked up. Will try again later
Assessment / Plan
Assessment / Plan
Ms. Charmaine Savage is a 63 yo woman with hx anxiety, HTN, DM who was brought in by family for being agitated, altered, tearful in setting of likely benzodiazepine withdrawal.�
HEAD CT
IMPRESSION:
No evidence of acute intracranial abnormality.
chest/abdomen/pelvis CT
IMPRESSION: Coronary artery calcifications are present. Please correlate with symptoms of and risk factors for coronary artery disease, with further workup as clinically appropriate.
Mild aortic valvular calcification is noted.
1.5 cm bulla within the inferior aspect of the right middle lobe of the lung.
Status post cholecystectomy with no evidence for biliary ductal dilation.
Mild fatty infiltration of the liver.
Questionable subtle nodular contour of the anterior margin of the left lobe of the liver, and raises the possibility of subtle cirrhosis, although considered a soft finding.
Suggestion of predominantly left-sided fibroid with exophytic component within the uterus, diameter of approximately 6 cm, somewhat limited evaluation without contrast.
Colonic diverticula with no CT evidence of diverticulitis.
MAR: ativan, IVF, IV Zofran, IV Ceftriaxone
Benzodiazepine Withdrawal
Acute Confusion
-patient s/p valium in ER
-admitted to telemetry
-MSAS with PRN ativan
-psychiatry consult
-IV fluids
-IV thiamine/folate
-mentation improved today
Acute Kidney Injury
Metabolic acidosis
-per sons, patient recently started Ozempic.� Vomiting may be from this drug versus withdrawal
-hold Ozempic
-FeNa pre-renal etiology
-change fluids to sodium bicarb
-creatinine improving
Depression
-unclear home meds.�need to complete med rec
-psychiatry consult
possible UTI
-IV Ceftriaxone given in ER
-continue for now, F/U culture
HTN
DM
-ISS low
*awaiting home med rec
DVT PPx hep subQ
FULL CODE
Anticipated Discharge: 24 - 48 hours
Subjective/Interval History
-
Date of Service: September 29, 2023
patient seems to be more clear today
states she was prescribed Valium in past
complains of upper abdominal pain, able to eat all breakfast and had normal BM this morning
Objective Data
-
Labs:
Laboratory Results
09/29/23
05:59
WBC 5.8
Hgb 11.7 L D
Hct 33.8 L
Plt Count 288 D
Sodium 142
Potassium 4.3
Chloride 114 H
Carbon Dioxide 18 L
BUN 39 H
Creatinine 1.5 H
Glucose 95
Calcium 8.6 D
Total Bilirubin 0.4
AST 23
ALT 17
Alkaline Phosphatase 85
Vital Signs:
Vital Signs
Temp Pulse Resp BP Pulse Ox
98.5 F 78 18 145/76 100
09/29/23 07:00 09/29/23 07:00 09/29/23 07:00 09/29/23 07:00 09/29/23 07:00
I&O
09/28/23 09/29/23 09/30/23
06:59 06:59 06:59
Output Total 200 / 200
Balance -200 / -200
Review of Systems
-
History Source: Patient
All other systems: Reviewed and negative
Physical Exam
-
General: No Apparent Distress
HEENT: PERRLA
Respiratory: Clear to Auscultation; Negative Wheezes
Cardiac: Regular Rhythm and S1/S2
GI: Soft and Nontender
Musculoskeletal: No Edema
Skin: Warm and Dry; Negative Rash
Neuro: AO x 3
Psych: Anxious
Data Reviewed
-
Diagnostic Radiology: Report Reviewed by me
Labs: Labs Reviewed by me
[2023-09-29 11:45] VITALS: BP 172/89
[2023-09-29] MEDS: SODIUM BICARBONATE 1150 MEQ IV (12:23)
[2023-09-29 12:28] LABS: Glucose - Point of Care 131 mg/dl (70-99)
--- NOTE | 2023-09-29 12:47 | CM ---
Met with patient and her son, Tesfaye Ortiz, #[phone], at the bedside.
Pharmacy: [facility], [address]
PCP: Matt Antony; [address], [address] [place] [address], [place], [facility] # [phone] (Admissions notified to update chart)
Patient was living in a home in [place] with her boyfriend. Son reported that patient cannot return to the home and has no place to live at this time.
Patient reports that she has 2 sons and 2 daughters.
Reports that she has depression.
Patient reported that she ambulates with a walker and was using a Continuous Glucose Monitor.
Patient also reported that she has had Home Care services in the past but could not remember the agency.
Patient does not drive
Patient agreeable to [facility]; Lizzette notified and will see the patient
[2023-09-29 13:50] LABS: Free T4 1.04 ng/dl (0.78-2.19)
--- NOTE | 2023-09-29 13:56 | W.PN.UPDATE ---
Update Note
Progress Note Update
patient seen chart reviewed. son at bedside. patient is a 63 year old woman w hx of depression and anxiety. she was admitted bc 'confusion'. she had split w bf which son says was a conflicted relationship and left the home they shared. she stayed
w a succession of other relatives. family noted increasing confusion and patient dropped a pill which d said she looked up on line and it was valium 10 mg. the patient denies the use of bzp and etoh which was a concern. i did check the pdmp and
did not see recent bzp scrips. a bag of pills was brought in by family which included sertraline buspar wellbutrin seroquel trileptal trazodone elavil prozac and cymbalta. the patient is still rather confused but she did say she was not taking
any of the above recently. she adamantly denies drinking to excess says one or two drinks if she goes out w friends but not daily. she has been very stressed but the breakup but does not says she is depressed. her appetite is okay. sleep is poor.
she denies suicidal thoughts. overt psychosis not noted but she did have to look at the sign in the room to tell the date and when i asked what holiday just passed she said her granddaughter's birthdays. she also struggled at times to put
sentences together....but son does says he is better compared to yesterday
past psych hx patient says many years ago rx for depression not recently although as stated she came w a bag of meds including psych medications
substance abuse see above patient denies abuse of etoh she denies abuse of drugs or alcohol. uds + for i did check pdmp and did not see scrips for controlled substances in the last year except a scrip for lacosamine uds + for bzp mj and tca
medical hx hx dm htn allergies noted cr 1.5 bun 39 hx hld and possibly sz disorder bp is high 172/89 afebrile pulse 89 ecg nl fatty liver possible cirrhotic changes ? uti started ceftriaxone
fh father was alcoholic
social hx patient w four children one present in room. retired from [employer] states has + friends denies abuse hx patient is family concerned patient will be homeless [place]. 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
mse alert to person place time but looked at calendar in room for time speech nl rate and tone most of the time. she hesitated in answering many questions as though she could not recall but as stated son feels she is better than on admit. thought
process generally goal oriented although derailed a bit when could not remember denies psychosis mood is neutral affect appropriate overall no overt psychosis averf intelligence insight judgment fair
dx tme ?? cause uti? etoh? hx depression and anxiety
recommendations patient denying hx etohism and drug use. says she saw the destruction etoh wrought for her dad and is very mindful. pdmp supports that she is not receiving opiates or bzp recently. would monitor via msas. could this be UTI?
case mgt consult re patient domeciled. psych will follow . at present would not add any psych meds.
[2023-09-29 14:01] LABS: Hemoglobin 13.4 g/dL (12.0-16.0)
[2023-09-29 15:00] VITALS: BP 169/83
--- NOTE | 2023-09-29 15:38 | PTCARENOTE ---
Pt c/o nausea and vomitting. Requested PRN Zofran order from Dr. Negrete. Order rec'd and given. Pt home meds brought in by son , reconciled by Joaquina from Pharmacy and taken to Pharmacy by Joaquina for us to hold until DC.
[2023-09-29] MEDS: ZOFRAN 4 MG IV (15:40)
[2023-09-29 17:09] LABS: Glucose - Point of Care 131 mg/dl (70-99)
[2023-09-29] MEDS: ROCEPHIN 1000 MG IV (17:49)
[2023-09-29] MEDS: STERILE WATER FOR INJECTION 10 ML IV (17:49)
[2023-09-29 19:29] VITALS: BP 157/55
[2023-09-29 21:32] LABS: Glucose - Point of Care 147 mg/dl (70-99)
[2023-09-29 23:33] VITALS: BP 170/85
[2023-09-30] VITALS (8 sets, daily range): BP systolic 115–155; BP diastolic 58–101; PULSE 102–106; O2SAT 96–97
--- NOTE | 2023-09-30 01:49 | PTCARENOTE ---
Patient having paranoid behaviors and insisting staff if talking about her and calling her family members talking about her. Patient reassured these thoughts and accusations were untrue. When staff walks past room in the hallway, patient calling to
see what staff member is doing and why they are doing so.
[2023-09-30] MEDS: ATIVAN 1 MG IV (02:11)
[2023-09-30] MEDS: NSS (PRESERVATIVE FREE) 0.5 ML IV (02:11)
[2023-09-30] MEDS: SODIUM BICARBONATE 1150 MEQ IV (04:53)
[2023-09-30 08:01] LABS: Glucose - Point of Care 109 mg/dl (70-99)
[2023-09-30 08:07] LABS: Blood Urea Nitrogen 22 mg/dl (7-17); Calcium 9.5 mg/dl (8.4-10.2); Carbon Dioxide 30 mmol/L (22-30); Chloride 104 mmol/L (98-107); Estimated Creatinine Clearance 51 ml/min; Glucose 95 mg/dl (70-99); Hemoglobin 12.1 g/dL (12.0-16.0); Mean Corp Hgb Conc. 34.6 g/dL (33.0-37.0); Mean Corpuscular Hgb 31.4 pg (27.0-31.0); Mean Corpuscular Volume 90.9 fL (81.0-99.0); Mean Platelet Volume 9.9 fL (7.4-10.4); Platelet Count 290 10^3/uL (130-400); Potassium 3.9 mmol/L (3.5-5.1); Red Blood Cell Count 3.85 10^6/uL (4.20-5.40); Red Cell Dist. Width 12.6 % (11.5-14.5); Sodium 138 mmol/L (135-145); White Blood Cell Count 5.2 10^3/uL (4.8-10.8); eGFR > 60.00
[2023-09-30] MEDS: NOVOLOG FLEXPEN-LOW RESISTANCE SC (08:18)
[2023-09-30] MEDS: FOLVITE 1 MG PO (08:41)
[2023-09-30] MEDS: THIAMINE INJECTION 200 MG IV ×2 (08:41→20:19)
[2023-09-30] MEDS: HEPARIN 5000 UNITS SC ×2 (08:41→20:19)
[2023-09-30] MEDS: SODIUM BICARBONATE IV (11:46)
--- NOTE | 2023-09-30 11:53 | W.PN.HOSP.TC ---
Addendum entered and electronically signed by Jen Negrete MD 09/30/23 14:43:
toxic metabolic encephalopathy 2/2 withdrawal
-see plan below
Original Note:
Today's Communication/Plan
-
stop fluids
F/U further psychiatry recs
Assessment / Plan
Assessment / Plan
Ms. Charmaine Savage is a 63 yo woman with hx anxiety, HTN, DM who was brought in by family for being agitated, altered, tearful in setting of likely benzodiazepine withdrawal.�
HEAD CT
IMPRESSION:
No evidence of acute intracranial abnormality.
chest/abdomen/pelvis CT
IMPRESSION: Coronary artery calcifications are present. Please correlate with symptoms of and risk factors for coronary artery disease, with further workup as clinically appropriate.
Mild aortic valvular calcification is noted.
1.5 cm bulla within the inferior aspect of the right middle lobe of the lung.
Status post cholecystectomy with no evidence for biliary ductal dilation.
Mild fatty infiltration of the liver.
Questionable subtle nodular contour of the anterior margin of the left lobe of the liver, and raises the possibility of subtle cirrhosis, although considered a soft finding.
Suggestion of predominantly left-sided fibroid with exophytic component within the uterus, diameter of approximately 6 cm, somewhat limited evaluation without contrast.
Colonic diverticula with no CT evidence of diverticulitis.
MAR: ativan, IVF, IV Zofran, IV Ceftriaxone
Benzodiazepine Withdrawal
Acute Confusion
-patient s/p valium in ER
-admitted to telemetry
-MSAS with PRN ativan (patient had valium that she was taking and it was flushed down toilet; therefore there was an abrupt cessation benzodiazepines)
-psychiatry consult
-IV thiamine/folate
-mentation improved today although remains confused
Acute Kidney Injury
Metabolic acidosis
-per sons, patient recently started Ozempic.� Vomiting may be from this drug versus withdrawal
-hold Ozempic
-FeNa pre-renal etiology
-can stop fluids, creatinine back to baseline
Depression
-unclear home meds.�need to complete med rec
-psychiatry consult
possible UTI
-IV Ceftriaxone given in ER
-stop ceftriaxone, urine culture without growth
HTN
DM
-ISS low
*awaiting home med rec
DVT PPx hep subQ
FULL CODE
Anticipated Discharge: 24 - 48 hours
Subjective/Interval History
-
Date of Service: September 30, 2023
states she is eating breakfast
appears confused but she's oriented
Objective Data
-
Labs:
Laboratory Results
09/30/23
07:03
WBC 5.2
Hgb 12.1
Hct 35.0 L
Plt Count 290
Sodium 138
Potassium 3.9
Chloride 104
Carbon Dioxide 30
BUN 22 H
Creatinine 0.9
Glucose 95
Calcium 9.5
Vital Signs:
Vital Signs
Temp Pulse Resp BP Pulse Ox
98.3 F 80 18 150/85 100
09/30/23 07:00 09/30/23 07:00 09/30/23 07:00 09/30/23 07:00 09/30/23 07:00
I&O
09/29/23 09/30/23 10/01/23
06:59 06:59 06:59
Intake Total 1440 / 1440
Output Total 200 / 200
Balance -200 / -200 1440 / 1440
Review of Systems
-
History Source: Patient
All other systems: Reviewed and negative
Physical Exam
-
General: No Apparent Distress
HEENT: PERRLA
Respiratory: Clear to Auscultation; Negative Wheezes
Cardiac: Regular Rhythm and S1/S2
GI: Soft and Nontender
Musculoskeletal: No Edema
Skin: Warm and Dry; Negative Rash
Neuro: AO x 3
Psych: Anxious
Data Reviewed
-
Diagnostic Radiology: Report Reviewed by me
Labs: Labs Reviewed by me
[2023-09-30 12:06] LABS: Glucose - Point of Care 244 mg/dl (70-99)
--- NOTE | 2023-09-30 12:32 | PN.CDI ---
CDI
- -
CDI:
Physician Documentation Request
Admit Date: 09/28/23 18:27
Dear Doctor Caden,
Patient admitted with benzodiazepine withdrawal.
09/30 PN, 'Acute Confusion....Benzodiazepine Withdrawal...mentation improved today although remains confused.'
Based on the above, please clarify in the Progress Notes and Discharge Summary which, if any of the following, is the most likely etiology of the confusion/altered mental status.
Toxic metabolic encephalopathy
Metabolic encephalopathy
Other
Use of terms such as suspected, likely, concern for, or probable (associated with a specific diagnosis that is being evaluated, monitored, or treated as if it exists) are acceptable and can be coded in the inpatient setting, when documented at the
time of discharge.
Thank you,
Gudelia WYMAN,RN,CCDS
CDI Specialist
Available via [place] text
Please use your independent medical judgment in providing your response.
[2023-09-30] MEDS: NOVOLOG FLEXPEN-LOW RESISTANCE 2 UNITS SC ×2 (12:41→17:59)
--- NOTE | 2023-09-30 14:55 | W.PN.UPDATE ---
Update Note
Progress Note Update
Patient is pleasant and cooperative. Oriented in all spheres. On cognitive testing the main problem is poor immediate recall.. Admits to anxiety but denies dyshoria, anhedonia, hopelessness or suicidal thoughts.
Toxicology is positive for marijuana, tricyclics and BZD's. CT head scan is normal.
Question is as to why there is still the loss of immediate recall, possibly due to BZD's or psych med cocktail. Would not start psychotropic meds for now.
Should have F/U as outpatient including psychotherapy.
--- NOTE | 2023-09-30 15:04 | CM ---
Spoke with Lizzette from [facility], patient agreeable to inpatient treatment.
Clinicals faxed to [phone].
Hopefully bed will be available tomorrow for inpatient [facility].
Plan: inpatient [facility].
[2023-09-30 17:54] LABS: Glucose - Point of Care 217 mg/dl (70-99)
[2023-09-30 21:37] LABS: Glucose - Point of Care 159 mg/dl (70-99)
[2023-10-01 03:08] VITALS: BP 159/86
--- NOTE | 2023-10-01 04:36 | PTCARENOTE ---
Patient c/o feeling chest palpitations. BP 159/86 HR 101 pulse ox 95% room air. EKG performed with result of Normal sinus rhythm . Possible left atrial enlargement. Borderline ECG. COUNTING MACHINE OPERATOR notified. No new orders at this time.
--- NOTE | 2023-10-01 04:59 | PTCARENOTE ---
Patient continues to be paranoid and calling breaux frequently to tell staff people are looking in at her and that people are talking about her. Patient also ringing frequently to ask the same questions over and over throughout shift. Also, frequently
stating to staff that she does not take narcotics nor drink alcohol.
[2023-10-01 07:35] VITALS: BP 157/109
[2023-10-01 07:40] LABS: Glucose - Point of Care 139 mg/dl (70-99)
[2023-10-01] MEDS: NOVOLOG FLEXPEN-LOW RESISTANCE SC (07:41)
[2023-10-01] MEDS: FOLVITE 1 MG PO (08:43)
[2023-10-01] MEDS: THIAMINE INJECTION 200 MG IV (08:43)
[2023-10-01] MEDS: HEPARIN 5000 UNITS SC ×2 (08:43→19:40)
[2023-10-01 09:36] LABS: Blood Urea Nitrogen 21 mg/dl (7-17); Calcium 9.8 mg/dl (8.4-10.2); Carbon Dioxide 31 mmol/L (22-30); Chloride 99 mmol/L (98-107); Estimated Creatinine Clearance 42 ml/min; Glucose 131 mg/dl (70-99); Potassium 3.7 mmol/L (3.5-5.1); Sodium 138 mmol/L (135-145); eGFR 56.81
--- NOTE | 2023-10-01 09:48 | PTCARENOTE ---
Verbally notified provider in person of patient's hypertension.
--- NOTE | 2023-10-01 09:59 | W.PN.HOSP.TC ---
Today's Communication/Plan
-
dispo planning with [facility] and CM
Assessment / Plan
Assessment / Plan
Ms. Charmaine Savage is a 63 yo woman with hx anxiety, HTN, DM who was brought in by family for being agitated, altered, tearful in setting of likely benzodiazepine withdrawal.�
HEAD CT
IMPRESSION:
No evidence of acute intracranial abnormality.
chest/abdomen/pelvis CT
IMPRESSION: Coronary artery calcifications are present. Please correlate with symptoms of and risk factors for coronary artery disease, with further workup as clinically appropriate.
Mild aortic valvular calcification is noted.
1.5 cm bulla within the inferior aspect of the right middle lobe of the lung.
Status post cholecystectomy with no evidence for biliary ductal dilation.
Mild fatty infiltration of the liver.
Questionable subtle nodular contour of the anterior margin of the left lobe of the liver, and raises the possibility of subtle cirrhosis, although considered a soft finding.
Suggestion of predominantly left-sided fibroid with exophytic component within the uterus, diameter of approximately 6 cm, somewhat limited evaluation without contrast.
Colonic diverticula with no CT evidence of diverticulitis.
MAR: ativan, IVF, IV Zofran, IV Ceftriaxone
Benzodiazepine Withdrawal
Acute Confusion
-patient s/p valium in ER
-admitted to telemetry
-MSAS with PRN ativan (patient had valium that she was taking and it was flushed down toilet; therefore there was an abrupt cessation benzodiazepines)
-psychiatry consult appreciated
-IV thiamine/folate
-mentation improved today although remains confused
-looking into inpatient rehab
Acute Kidney Injury
Metabolic acidosis
-per sons, patient recently started Ozempic.� Vomiting may be from this drug versus withdrawal
-hold Ozempic
-FeNa pre-renal etiology
-can stop fluids, creatinine back to baseline
Depression
-unclear home meds.�need to complete med rec
-psychiatry consult
possible UTI
-IV Ceftriaxone given in ER
-stop ceftriaxone, urine culture without growth
HTN
DM
-ISS low
*awaiting home med rec
DVT PPx hep subQ
FULL CODE
Anticipated Discharge: Within 24 hours
Subjective/Interval History
-
Date of Service: October 01, 2023
seen with BCARES at bedside
Objective Data
-
Labs:
Laboratory Results
10/01/23
07:33
Sodium 138
Potassium 3.7
Chloride 99
Carbon Dioxide 31 H
BUN 21 H
Creatinine 1.1 H
Glucose 131 H
Calcium 9.8
Vital Signs:
Vital Signs
Temp Pulse Resp BP Pulse Ox
98.0 F 117 16 157/109 98
10/01/23 07:35 10/01/23 07:35 10/01/23 07:35 10/01/23 07:35 10/01/23 07:35
I&O
09/30/23 10/01/23 10/02/23
06:59 06:59 06:59
Intake Total 1440 / 1440 960 / 960
Balance 1440 / 1440 960 / 960
Review of Systems
-
History Source: Patient
All other systems: Reviewed and negative
Physical Exam
-
General: No Apparent Distress
HEENT: PERRLA
Respiratory: Clear to Auscultation; Negative Wheezes
Cardiac: Regular Rhythm and S1/S2
GI: Soft and Nontender
Musculoskeletal: No Edema
Skin: Warm and Dry; Negative Rash
Neuro: AO x 3
Psych: Anxious
Data Reviewed
-
Diagnostic Radiology: Report Reviewed by me
Labs: Labs Reviewed by me
[2023-10-01] MEDS: TOPROL XL 25 MG PO (10:37)
[2023-10-01 11:35] VITALS: BP 167/94
[2023-10-01 11:58] LABS: Glucose - Point of Care 187 mg/dl (70-99)
--- NOTE | 2023-10-01 12:05 | PTCARENOTE ---
Notified provider of patient's elevated BP after PO medication given this morning.
[2023-10-01] MEDS: NOVOLOG FLEXPEN-LOW RESISTANCE 1 UNITS SC (12:38)
[2023-10-01 15:50] VITALS: BP 143/90
--- NOTE | 2023-10-01 16:05 | CM ---
Per Lizzette/TAMMY, no bed available today.
Continue to follow for SA rehab.
Plan: inpatient SA rehab when bed available.
[2023-10-01 16:58] LABS: Glucose - Point of Care 205 mg/dl (70-99)
[2023-10-01] MEDS: NOVOLOG FLEXPEN-LOW RESISTANCE 2 UNITS SC (17:26)
--- NOTE | 2023-10-01 17:28 | PTCARENOTE ---
Patient compliant and cooperative with call breaux use throughout the shift, ringing appropriately to express her needs. [facility] d/c'ed
[2023-10-01] MEDS: VITAMIN B1 100 MG PO (19:40)
[2023-10-01 21:41] LABS: Glucose - Point of Care 205 mg/dl (70-99)
[2023-10-01 23:00] VITALS: BP 187/107
[2023-10-02] MEDS: APRESOLINE 5 MG IV (01:13)
--- NOTE | 2023-10-02 01:22 | PTCARENOTE ---
Pt's BP was 187/107; has baseline anxiousness, but asymptomatic other than that. CARTOON ANIMATOR notified; 5 mg of hydralazine ordered. Will continue to monitor, BP will be checked again at 3:00
[2023-10-02 03:00] VITALS: BP 124/72
[2023-10-02 07:07] VITALS: BP 149/89
[2023-10-02 07:46] LABS: Glucose - Point of Care 160 mg/dl (70-99)
[2023-10-02] MEDS: HEPARIN 5000 UNITS SC ×2 (08:52→21:03)
[2023-10-02] MEDS: VITAMIN B1 100 MG PO ×2 (08:52→21:03)
[2023-10-02] MEDS: NOVOLOG FLEXPEN-LOW RESISTANCE 1 UNITS SC ×2 (08:52→13:01)
[2023-10-02] MEDS: TOPROL XL 25 MG PO (08:52)
[2023-10-02] MEDS: FOLVITE 1 MG PO (08:52)
[2023-10-02 11:44] VITALS: BP 165/84
--- NOTE | 2023-10-02 12:08 | W.PN.HOSP.TC ---
Today's Communication/Plan
-
dispo planning
Assessment / Plan
Assessment / Plan
Ms. Charmaine Savage is a 63 yo woman with hx anxiety, HTN, DM who was brought in by family for being agitated, altered, tearful in setting of likely benzodiazepine withdrawal.�
HEAD CT
IMPRESSION:
No evidence of acute intracranial abnormality.
chest/abdomen/pelvis CT
IMPRESSION: Coronary artery calcifications are present. Please correlate with symptoms of and risk factors for coronary artery disease, with further workup as clinically appropriate.
Mild aortic valvular calcification is noted.
1.5 cm bulla within the inferior aspect of the right middle lobe of the lung.
Status post cholecystectomy with no evidence for biliary ductal dilation.
Mild fatty infiltration of the liver.
Questionable subtle nodular contour of the anterior margin of the left lobe of the liver, and raises the possibility of subtle cirrhosis, although considered a soft finding.
Suggestion of predominantly left-sided fibroid with exophytic component within the uterus, diameter of approximately 6 cm, somewhat limited evaluation without contrast.
Colonic diverticula with no CT evidence of diverticulitis.
MAR: ativan, IVF, IV Zofran, IV Ceftriaxone
Benzodiazepine Withdrawal
Acute Confusion
-patient s/p valium in ER
-admitted to telemetry
-MSAS with PRN ativan (patient had valium that she was taking and it was flushed down toilet; therefore there was an abrupt cessation benzodiazepines)
-psychiatry consult appreciated
-IV thiamine/folate
-mentation improved, remains anxious
-looking into inpatient rehab --> need to follow up CM recs as patient is homeless and no rehab beds available as of now
Acute Kidney Injury
Metabolic acidosis
-per sons, patient recently started Ozempic.� Vomiting may be from this drug versus withdrawal
-hold Ozempic
-FeNa pre-renal etiology
-can stop fluids, creatinine back to baseline
Depression
-I texted Dr. Camilo to see patient again today given significant anxiety and insomnia
possible UTI
-IV Ceftriaxone given in ER
-stop ceftriaxone, urine culture without growth
HTN
-exacerbated by anxity
-new start metoprolol this admission
DM
-ISS low
*awaiting home med rec
DVT PPx hep subQ
FULL CODE
Anticipated Discharge: Within 24 hours
Subjective/Interval History
-
Date of Service: October 02, 2023
stating she's not sleeping and is anxious
doesn't have a place to stay
Objective Data
-
Vital Signs:
Vital Signs
Temp Pulse Resp BP Pulse Ox
97.8 F 88 20 149/89 98
10/02/23 07:07 10/02/23 07:07 10/02/23 07:07 10/02/23 07:07 10/02/23 07:07
I&O
10/01/23 10/02/23 10/03/23
06:59 06:59 06:59
Intake Total 960 / 960 480 / 480
Balance 960 / 960 480 / 480
Review of Systems
-
History Source: Patient
All other systems: Reviewed and negative
Physical Exam
-
General: No Apparent Distress
HEENT: PERRLA
Respiratory: Clear to Auscultation; Negative Wheezes
Cardiac: Regular Rhythm and S1/S2
GI: Soft and Nontender
Musculoskeletal: No Edema
Skin: Warm and Dry; Negative Rash
Neuro: AO x 3
Psych: Anxious
Data Reviewed
-
Diagnostic Radiology: Report Reviewed by me
Labs: Labs Reviewed by me
--- NOTE | 2023-10-02 12:16 | CM ---
CM spoke with Lizzette from [facility], confirmed patient is on waitlist at [facility] for inpatient bed. CM will continue to follow for discharge planning needs.
Plan; [facility] inpatient D&A bed when available.
[2023-10-02 12:50] LABS: Glucose - Point of Care 167 mg/dl (70-99)
[2023-10-02 15:46] VITALS: BP 139/86
--- NOTE | 2023-10-02 16:04 | W.PN.UPDATE ---
Update Note
Progress Note Update
Pt seen sitting up in chair eating lunch, alert oriented, calm, cooperative. Pt has mild generalized tremor, coherent but somewhat rambling speech. Pt talked about her alcoholic father who about a year ago, about her mother who she
states doesnt' like her. Reviewed recent medications, several of which are duplicate therapy. Pt reports being on Vimpat. Pt had assessment with [facility] and is agreeable to D/A rehab.
Imp: Unspecified depressive d/o
Benzo use
Rec: will restart Sertraline, Trazodone, Amitriptyline at lower doses
will follow
[2023-10-02 17:00] LABS: Glucose - Point of Care 205 mg/dl (70-99)
[2023-10-02] MEDS: NOVOLOG FLEXPEN-LOW RESISTANCE 2 UNITS SC (17:11)
[2023-10-02 20:48] LABS: Glucose - Point of Care 185 mg/dl (70-99)
[2023-10-02] MEDS: DESYREL 50 MG PO (21:08)
[2023-10-02] MEDS: ELAVIL 25 MG PO (21:08)
--- NOTE | 2023-10-02 22:11 | W.PN.UPDATE ---
Update Note
Progress Note Update
pt requesting nicotine patch
now that she is feeling better she is having nicotine cravings despite not having smoked in 20 yrs.
will do a low dose patch
[2023-10-02] MEDS: NICODERM TRANSDERMAL 7 MG TRANSDERM (22:55)
[2023-10-02 23:00] VITALS: BP 120/67
[2023-10-03] MEDS: FOLVITE 1 MG PO (07:43)
[2023-10-03] MEDS: VITAMIN B1 100 MG PO ×2 (07:43→19:51)
[2023-10-03] MEDS: TOPROL XL 25 MG PO (07:44)
[2023-10-03] MEDS: HEPARIN SC (07:44)
[2023-10-03 07:49] VITALS: BP 129/73
[2023-10-03 08:16] LABS: Glucose - Point of Care 154 mg/dl (70-99)
[2023-10-03] MEDS: NOVOLOG FLEXPEN-LOW RESISTANCE 1 UNITS SC ×2 (08:16→17:31)
[2023-10-03] MEDS: ZOLOFT 25 MG PO (10:01)
[2023-10-03 11:28] LABS: Glucose - Point of Care 252 mg/dl (70-99)
[2023-10-03] MEDS: NICODERM TRANSDERMAL 7 MG TRANSDERM (11:29)
[2023-10-03] MEDS: NOVOLOG FLEXPEN-LOW RESISTANCE 3 UNITS SC (11:29)
--- NOTE | 2023-10-03 12:02 | W.PN.HOSP.TC ---
Today's Communication/Plan
-
dispo planning
check flu and covid
Assessment / Plan
Assessment / Plan
Ms. Charmaine Savage is a 63 yo woman with hx anxiety, HTN, DM who was brought in by family for being agitated, altered, tearful in setting of likely benzodiazepine withdrawal.�
HEAD CT
IMPRESSION:
No evidence of acute intracranial abnormality.
chest/abdomen/pelvis CT
IMPRESSION: Coronary artery calcifications are present. Please correlate with symptoms of and risk factors for coronary artery disease, with further workup as clinically appropriate.
Mild aortic valvular calcification is noted.
1.5 cm bulla within the inferior aspect of the right middle lobe of the lung.
Status post cholecystectomy with no evidence for biliary ductal dilation.
Mild fatty infiltration of the liver.
Questionable subtle nodular contour of the anterior margin of the left lobe of the liver, and raises the possibility of subtle cirrhosis, although considered a soft finding.
Suggestion of predominantly left-sided fibroid with exophytic component within the uterus, diameter of approximately 6 cm, somewhat limited evaluation without contrast.
Colonic diverticula with no CT evidence of diverticulitis.
MAR: ativan, IVF, IV Zofran, IV Ceftriaxone
Benzodiazepine Withdrawal
Acute Confusion
-patient s/p valium in ER
-admitted to telemetry
-MSAS with PRN ativan (patient had valium that she was taking and it was flushed down toilet; therefore there was an abrupt cessation benzodiazepines)
-psychiatry consult appreciated
-IV thiamine/folate
-mentation improved, remains anxious
-looking into inpatient rehab -->per CM, patient is on wait list for [facility], waiting for a bed
-appreciate psychiatry: Zoloft, Amitriptyline and Trazodone resumed
Acute Kidney Injury
Metabolic acidosis
-per sons, patient recently started Ozempic.� Vomiting may be from this drug versus withdrawal
-hold Ozempic
-FeNa pre-renal etiology
-can stop fluids, creatinine back to baseline
URI
-test flu and covid
-no fevers
Depression
-I texted Dr. Camilo to see patient again today given significant anxiety and insomnia
possible UTI
-IV Ceftriaxone given in ER
-stop ceftriaxone, urine culture without growth
HTN
-exacerbated by anxity
-new start metoprolol this admission
-better this morning
DM
-ISS low
-start Januvia
DVT PPx hep subQ
FULL CODE
Anticipated Discharge: 24 - 48 hours
Subjective/Interval History
-
Date of Service: October 03, 2023
seen walking around
feeling better this morning
less anxious
but patient with new nasal congestion
no chest pain or cough
Objective Data
-
Vital Signs:
Vital Signs
Temp Pulse Resp BP Pulse Ox
99.0 F 91 16 129/73 97
10/03/23 07:49 10/03/23 07:49 10/03/23 07:49 10/03/23 07:49 10/03/23 07:49
I&O
10/02/23 10/03/23 10/04/23
06:59 06:59 06:59
Intake Total 480 / 480 1440 / 1440
Balance 480 / 480 1440 / 1440
Review of Systems
-
History Source: Patient
All other systems: Reviewed and negative
Physical Exam
-
General: No Apparent Distress
HEENT: PERRLA and Other (nasal congestion)
Respiratory: Clear to Auscultation; Negative Wheezes
Cardiac: Regular Rhythm and S1/S2
GI: Soft and Nontender
Musculoskeletal: No Edema
Skin: Warm and Dry; Negative Rash
Neuro: AO x 3
Psych: Anxious
Data Reviewed
-
Diagnostic Radiology: Report Reviewed by me
Labs: Labs Reviewed by me
[2023-10-03 12:52] LABS: COVID-19 Antigen Negative (Negative)
[2023-10-03] MEDS: JANUVIA 100 MG PO (13:35)
--- NOTE | 2023-10-03 15:21 | CM ---
Addendum entered by Chantal Garcia 10/03/23 15:31:
CM spoke with patients son Tesfaye, discussed plan for updated PT/OT notes to send to [facility]. CM provided website for [facility] in order to learn more information about [facility], as son was inquiring. Tesfaye
reports he and his siblings were concerned karina mother was going to be homeless, and that this has been an ongoing issue for 20-30 years. CM offered support, will follow for PT/OT updates.
Original Note:
CM spoke with Seymour from [facility], discussed needing updated PT/OT notes to send updated clinicals to [facility] in order to accept patient. CM spoke with PT/OT, will prioritize seeing patient tomorrow. CM will call patients son to provide update. CM
will continue to follow for discharge planning needs.
Plan; [facility] pending acceptance, will need to fax updated clinicals to Seymour at [facility] [phone].
[2023-10-03 15:22] VITALS: BP 130/63; PULSE 81
[2023-10-03 15:26] VITALS: BP 138/63
[2023-10-03 16:57] LABS: Glucose - Point of Care 173 mg/dl (70-99)
[2023-10-03] MEDS: LOW STRENGTH ASPIRIN 81 MG PO (17:30)
[2023-10-03] MEDS: TYLENOL 650 MG PO (17:30)
[2023-10-03 19:28] VITALS: BP 144/63
[2023-10-03 19:35] LABS: Glucose - Point of Care 236 mg/dl (70-99)
[2023-10-03] MEDS: HEPARIN 5000 UNITS SC (19:50)
[2023-10-03] MEDS: DESYREL 50 MG PO (21:26)
[2023-10-03] MEDS: ELAVIL 25 MG PO (21:26)
[2023-10-03 23:39] VITALS: BP 147/73
[2023-10-04 07:25] VITALS: BP 143/76
[2023-10-04 08:08] LABS: Glucose - Point of Care 154 mg/dl (70-99)
[2023-10-04] MEDS: NOVOLOG FLEXPEN-LOW RESISTANCE 1 UNITS SC (08:47)
[2023-10-04] MEDS: LOW STRENGTH ASPIRIN 81 MG PO (08:48)
[2023-10-04] MEDS: VITAMIN B1 100 MG PO ×2 (08:48→20:03)
[2023-10-04] MEDS: HEPARIN 5000 UNITS SC ×2 (08:48→20:04)
[2023-10-04] MEDS: TOPROL XL 25 MG PO (08:48)
[2023-10-04] MEDS: JANUVIA 100 MG PO (08:48)
[2023-10-04] MEDS: FOLVITE 1 MG PO (08:48)
[2023-10-04] MEDS: ZOLOFT 25 MG PO (08:48)
[2023-10-04] MEDS: NICODERM TRANSDERMAL 7 MG TRANSDERM (08:49)
--- NOTE | 2023-10-04 09:08 | W.PN.HOSP.TC ---
Today's Communication/Plan
-
Discharge to inpt psych when bed available
Assessment / Plan
Assessment / Plan
Ms. Charmaine Savage is a 63 yo woman with hx anxiety, HTN, DM who was brought in by family for being agitated, altered, tearful in setting of likely benzodiazepine withdrawal.�
Benzodiazepine Withdrawal
Acute Confusion
-patient s/p valium in ER, MSAS with PRN ativan (patient had valium that she was taking and it was flushed down toilet; therefore there was an abrupt cessation benzodiazepines)
-IV thiamine/folate
-mentation improved, remains anxious
-appreciate psychiatry: Zoloft, Amitriptyline and Trazodone resumed
-Appreciate case management input, stable for discharge to inpatient psych when bed available
Acute Kidney Injury
Metabolic acidosis
-per sons, patient recently started Ozempic.� Vomiting may be from this drug versus withdrawal
-hold Ozempic, FeNa pre-renal etiology
-Resolved status post IV fluids
URI
-test flu and covid
-no fevers
Depression
-Psychiatry following
UTI ruled out
-IV Ceftriaxone given in ER
-stop ceftriaxone, urine culture without growth
HTN
-exacerbated by anxiety
-new start metoprolol this admission
-better this morning
DM
-ISS low
-started Januvia
DVT prophylaxis�subcu heparin
Full code
Physical Exam
General: No acute distress
HEENT: Normocephalic, Atraumatic, EOMI, MMM
Respiratory: Clear to Auscultation bilaterally
Cardiac: Normal S1/S2, Regular Rate and Rhythm
GI: Soft, Nontender, Nondistended, Normal Bowel Sounds
Extremities: No Clubbing, Cyanosis, or Edema
Neuro: Nonfocal/Grossly Intact
Psych: Intermittently anxious
Derm: No Visible lesions
Anticipated Discharge: Within 24 hours
Subjective/Interval History
-
Date of Service: October 04, 2023
No acute events.
Objective Data
-
Vital Signs:
Vital Signs
Temp Pulse Resp BP Pulse Ox
99.4 F 84 16 139/71 95
10/04/23 07:25 10/04/23 08:48 10/04/23 07:25 10/04/23 08:48 10/04/23 07:25
I&O
10/03/23 10/04/23 10/05/23
06:59 06:59 06:59
Intake Total 1440 / 1440 1440 / 1440
Balance 1440 / 1440 1440 / 1440
--- NOTE | 2023-10-04 11:08 | CM ---
Addendum entered by Cherry Snyder 10/04/23 15:32:
Updated clinicals faxed to Lizzette/TAMMY F# [phone]
Original Note:
Per [place], patient was denied by [facility] due to not being independent with ADLS.
OT to re-eval today.
Plan: SA rehab when stable.
[2023-10-04 11:35] LABS: Glucose - Point of Care 233 mg/dl (70-99)
[2023-10-04] MEDS: NOVOLOG FLEXPEN-LOW RESISTANCE 2 UNITS SC (11:53)
[2023-10-04 11:56] VITALS: BP 136/71; PULSE 77; O2SAT 98
--- NOTE | 2023-10-04 14:42 | W.PN.UPDATE ---
Update Note
Progress Note Update
Pt seen, sitting up in chair, alert, calm, cooperative. Pt states she feels somewhat anxious about her disposition plan, waiting for a bed in D/A rehab facility. Pt reports hx of feeling agitated on Zoloft, asks to re-try Prozac instead. Sleeping
okay on Trazodone, amitriptyline, denies side effect. Pt states she has neuropathy, tried Gabapentin in the past and had some impaired coordination, stopped it.
Imp:� Unspecified depressive d/o
�� � � Benzo use
Rec:� will switch Sertraline to low-dose Prozac, continue Trazodone, Amitriptyline- restarted at lower doses
�� � � will follow
[2023-10-04] MEDS: PROZAC 10 MG PO (15:00)
[2023-10-04 15:30] VITALS: BP 137/71
[2023-10-04 16:43] LABS: Glucose - Point of Care 99 mg/dl (70-99)
[2023-10-04] MEDS: NOVOLOG FLEXPEN-LOW RESISTANCE SC (16:43)
[2023-10-04] MEDS: DESYREL 50 MG PO (20:03)
[2023-10-04] MEDS: ELAVIL 25 MG PO (20:03)
[2023-10-04 21:39] LABS: Glucose - Point of Care 235 mg/dl (70-99)
[2023-10-04 23:19] VITALS: BP 122/59
[2023-10-05 07:25] VITALS: BP 133/67
[2023-10-05 07:31] LABS: Glucose - Point of Care 141 mg/dl (70-99)
[2023-10-05] MEDS: HEPARIN 5000 UNITS SC ×2 (08:15→20:02)
[2023-10-05] MEDS: NOVOLOG FLEXPEN-LOW RESISTANCE SC (08:15)
[2023-10-05] MEDS: LOW STRENGTH ASPIRIN 81 MG PO (08:16)
[2023-10-05] MEDS: TOPROL XL 25 MG PO (08:16)
[2023-10-05] MEDS: NICODERM TRANSDERMAL 7 MG TRANSDERM (08:16)
[2023-10-05] MEDS: VITAMIN B1 100 MG PO ×2 (08:16→20:02)
[2023-10-05] MEDS: FOLVITE 1 MG PO (08:16)
[2023-10-05] MEDS: JANUVIA 100 MG PO (08:16)
[2023-10-05] MEDS: PROZAC 10 MG PO (08:16)
--- NOTE | 2023-10-05 08:36 | W.PN.HOSP.TC ---
Addendum entered and electronically signed by Toi Grant MD 10/07/23 12:32:
Correction, patient is currently on prozac, not zoloft.
Original Note:
Today's Communication/Plan
-
Discharge to inpatient substance rehab when bed available
Assessment / Plan
Assessment / Plan
Ms. Charmaien Savage is a 63 yo woman with hx anxiety, HTN, DM who was brought in by family for being agitated, altered, tearful in setting of likely benzodiazepine withdrawal.�
Benzodiazepine Withdrawal
Acute Confusion
-patient s/p valium in ER, MSAS with PRN ativan (patient had valium that she was taking and it was flushed down toilet; therefore there was an abrupt cessation benzodiazepines)
-IV thiamine/folate
-mentation improved, remains anxious
-appreciate psychiatry: Zoloft, Amitriptyline and Trazodone resumed
-stable for discharge to inpatient substance rehab when bed available
Acute Kidney Injury
Metabolic acidosis
-per sons, patient recently started Ozempic.� Vomiting may be from this drug versus withdrawal
-hold Ozempic, FeNa pre-renal etiology
-Resolved status post IV fluids
URI
-flu and covid neg
-no fevers, supportive care as needed
Depression
-Psychiatry following, continue meds as per psychiatry
UTI ruled out
-IV Ceftriaxone given in ER
-stopped ceftriaxone, urine culture without growth
HTN
-exacerbated by anxiety
-new start metoprolol this admission
-better this morning
DM
-ISS low
-started Januvia
DVT prophylaxis�subcu heparin
Full code
Physical Exam
General: No acute distress
HEENT: Normocephalic, Atraumatic, EOMI, MMM
Respiratory: Clear to Auscultation bilaterally
Cardiac: Normal S1/S2, Regular Rate and Rhythm
GI: Soft, Nontender, Nondistended, Normal Bowel Sounds
Extremities: No Clubbing, Cyanosis, or Edema
Neuro: Nonfocal/Grossly Intact
Psych: Intermittently anxious
Derm: No Visible lesions
Anticipated Discharge: Within 24 hours
Subjective/Interval History
-
Date of Service: October 05, 2023
Patient reports feeling better after her diet was increased.
Objective Data
-
Vital Signs:
Vital Signs
Temp Pulse Resp BP Pulse Ox
97.9 F 71 16 133/67 98
10/05/23 07:25 10/05/23 08:16 10/05/23 07:25 10/05/23 08:16 10/05/23 07:25
I&O
10/04/23 10/05/23 10/06/23
06:59 06:59 06:59
Intake Total 1440 / 1440 1260 / 1260
Balance 1440 / 1440 1260 / 1260
[2023-10-05 08:40] VITALS: BP 137/79; PULSE 72; O2SAT 97
--- NOTE | 2023-10-05 10:29 | W.PN.UPDATE ---
Update Note
Progress Note Update
Patient seen sitting up in the chair, chart reviewed, discussed with staff. Ms. Savage tells me she is feeling pretty good today. She is fully dressed and tells me she put on makeup today. She awaits D/C to D&A rehab but has also been working on
other plans for D/C if needed including contacting [facility]. Doing well so far with the switch to Prozac. She has taken this in the past and denies any issues.
Impression/Plan: Unspecified depressive disorder; Benzo use - Await D/C to D&A rehab, will continue with current psychotropic medication regimen including Trazodone, Amitriptyline, and Prozac. These medications have been reinitiated at lower doses
for now. Will monitor for now.
[2023-10-05 11:50] LABS: Glucose - Point of Care 232 mg/dl (70-99)
[2023-10-05] MEDS: NOVOLOG FLEXPEN-LOW RESISTANCE 2 UNITS SC (12:36)
[2023-10-05 15:25] VITALS: BP 130/90
--- NOTE | 2023-10-05 15:52 | CM ---
Continues to wait for SA bed.
TC to [facility] left VM.
Spoke with patient bedside, she is currently homless and looking for a place to live (apartment).
Patients children are unable to assist.
Plan: inpatient vs outpatient SA rehab.
[2023-10-05 16:35] LABS: Glucose - Point of Care 169 mg/dl (70-99)
[2023-10-05] MEDS: NOVOLOG FLEXPEN-LOW RESISTANCE 1 UNITS SC (18:04)
[2023-10-05] MEDS: ELAVIL 25 MG PO (21:51)
[2023-10-05] MEDS: DESYREL 50 MG PO (21:51)
[2023-10-05 22:01] LABS: Glucose - Point of Care 154 mg/dl (70-99)
[2023-10-05 23:28] VITALS: BP 120/58
[2023-10-06 07:25] VITALS: BP 122/65
[2023-10-06 07:32] LABS: Glucose - Point of Care 121 mg/dl (70-99)
[2023-10-06] MEDS: NOVOLOG FLEXPEN-LOW RESISTANCE SC (07:38)
[2023-10-06] MEDS: TOPROL XL 25 MG PO (07:40)
[2023-10-06] MEDS: PROZAC 10 MG PO (07:40)
[2023-10-06] MEDS: VITAMIN B1 100 MG PO ×2 (07:40→19:39)
[2023-10-06] MEDS: FOLVITE 1 MG PO (07:41)
[2023-10-06] MEDS: LOW STRENGTH ASPIRIN 81 MG PO (07:41)
[2023-10-06] MEDS: JANUVIA 100 MG PO (07:41)
[2023-10-06] MEDS: NICODERM TRANSDERMAL 7 MG TRANSDERM (07:41)
[2023-10-06] MEDS: HEPARIN 5000 UNITS SC ×2 (07:41→19:39)
--- NOTE | 2023-10-06 07:58 | W.PN.HOSP.TC ---
Addendum entered and electronically signed by Toi Grant MD 10/07/23 12:30:
Correction, patient is currently on prozac/Trazodone, not zoloft/amitriptyline.
Original Note:
Today's Communication/Plan
-
Discharge to substance rehab when bed available
Assessment / Plan
Assessment / Plan
Ms. Charmaine Savage is a 63 yo woman with hx anxiety, HTN, DM who was brought in by family for being agitated, altered, tearful in setting of likely benzodiazepine withdrawal.�
Benzodiazepine Withdrawal
Acute Confusion
-patient s/p valium in ER, MSAS with PRN ativan (patient had valium that she was taking and it was flushed down toilet; therefore there was an abrupt cessation benzodiazepines)
-IV thiamine/folate
-mentation improved, remains anxious
-appreciate psychiatry: Zoloft, Amitriptyline and Trazodone resumed
-stable for discharge to inpatient substance rehab when bed available
Acute Kidney Injury
Metabolic acidosis
-per sons, patient recently started Ozempic.� Vomiting may be from this drug versus withdrawal
-hold Ozempic, FeNa pre-renal etiology
-Resolved status post IV fluids
URI
-flu and covid neg
-no fevers, supportive care as needed
Depression
-Psychiatry following, continue meds as per psychiatry
UTI ruled out
-IV Ceftriaxone given in ER
-stopped ceftriaxone, urine culture without growth
HTN
-exacerbated by anxiety
-new start metoprolol this admission
-better this morning
DM
-ISS low
-started Januvia
DVT prophylaxis�subcu heparin
Full code
Physical Exam
General: No acute distress
HEENT: Normocephalic, Atraumatic, EOMI, MMM
Respiratory: Clear to Auscultation bilaterally
Cardiac: Normal S1/S2, Regular Rate and Rhythm
GI: Soft, Nontender, Nondistended, Normal Bowel Sounds
Extremities: No Clubbing, Cyanosis, or Edema
Neuro: Nonfocal/Grossly Intact
Psych: Intermittently anxious
Derm: No Visible lesions
Anticipated Discharge: Within 24 hours
Subjective/Interval History
-
Date of Service: October 06, 2023
No acute changes.
Objective Data
-
Vital Signs:
Vital Signs
Temp Pulse Resp BP Pulse Ox
98.2 F 62 18 122/65 94
10/05/23 23:28 10/06/23 07:40 10/05/23 23:28 10/06/23 07:40 10/05/23 15:25
I&O
10/05/23 10/06/23 10/07/23
06:59 06:59 06:59
Intake Total 1260 / 1260 1620 / 1620
Balance 1260 / 1260 1620 / 1620
--- NOTE | 2023-10-06 11:21 | CM ---
TC from [facility].
Patient does not meet [employer] criteria for inpatient rehab.
Patient is at a level 3.7 and needs to be a 4.0.
Per Lizzette, she will check to see if [facility] will[facility] her.
Await TCB.
Plan: SA rehab
[2023-10-06 11:41] LABS: Glucose - Point of Care 301 mg/dl (70-99)
--- NOTE | 2023-10-06 12:41 | W.PN.UPDATE ---
Update Note
Progress Note Update
patient seen chart reviewed. son at bedside. the patient is known to me as i saw her early in her admission. she is MUCH improved at this point. she acknowledges she needs help and has agreed to go to rehab. we talked about her meds. i am not in
favor of elavil given her hx. it is a drug that is dangerous in od and it does not interact well w prozac. she is okay w dc . she does have issues w sleep.she is already on trazodone which could be increased. also recommended melatonin and
explained to her that she should look for a brand which is us pharmacopoeia certified as a lot of dietary supplements do not contain what they are purported to contain. also recommended she go on line and research cognitive behavioral strategies
for sleep which she said she will do. spoke with jarod torres. they report [facility] rehab is a possibility. [facility] also has [facility] which could be a very good resource as a place to live post dc. psych will sign off.
[2023-10-06] MEDS: NOVOLOG FLEXPEN-LOW RESISTANCE 4 UNITS SC (13:09)
[2023-10-06 15:20] VITALS: BP 128/68
--- NOTE | 2023-10-06 16:11 | CM ---
TC from [facility].
Patient does not meet [employer] criteria for inpatient rehab.
Patient is at a level 3.7 and needs to be a 4.0.
Per Lizzette, she will check to see if [facility] will accept her.
Await TCB.
Spoke with patient and updated re bed status.
Provided information on hotels and [email or web address] information provided to assist with housing search.
Plan: SA rehab
[2023-10-06 17:12] LABS: Glucose - Point of Care 218 mg/dl (70-99)
[2023-10-06] MEDS: NOVOLOG FLEXPEN-LOW RESISTANCE 2 UNITS SC (17:24)
[2023-10-06 21:20] LABS: Glucose - Point of Care 187 mg/dl (70-99)
[2023-10-06] MEDS: DESYREL 50 MG PO (21:37)
[2023-10-06 23:00] VITALS: BP 112/63
[2023-10-07 07:30] VITALS: BP 135/62
[2023-10-07] MEDS: LOW STRENGTH ASPIRIN 81 MG PO (07:44)
[2023-10-07] MEDS: JANUVIA 100 MG PO (07:44)
[2023-10-07] MEDS: PROZAC 10 MG PO (07:44)
[2023-10-07] MEDS: VITAMIN B1 100 MG PO (07:44)
[2023-10-07] MEDS: NICODERM TRANSDERMAL 7 MG TRANSDERM (07:44)
[2023-10-07] MEDS: TOPROL XL 25 MG PO (07:44)
[2023-10-07] MEDS: HEPARIN 5000 UNITS SC (07:45)
[2023-10-07] MEDS: FOLVITE 1 MG PO (07:45)
[2023-10-07 07:53] LABS: Glucose - Point of Care 153 mg/dl (70-99)
[2023-10-07] MEDS: NOVOLOG FLEXPEN-LOW RESISTANCE 1 UNITS SC ×2 (07:54→12:36)
--- NOTE | 2023-10-07 10:25 | W.PN.HOSP.TC ---
Today's Communication/Plan
-
Discharge to rehab today
Assessment / Plan
Assessment / Plan
Ms. Charmaine Savage is a 63 yo woman with hx anxiety, HTN, DM who was brought in by family for being agitated, altered, tearful in setting of likely benzodiazepine withdrawal.�
Benzodiazepine Withdrawal
Acute Confusion
-patient s/p valium in ER, MSAS with PRN ativan (patient had valium that she was taking and it was flushed down toilet; therefore there was an abrupt cessation benzodiazepines)
-thiamine/folate
-mentation improved, remains anxious
-appreciate psychiatry: Currently on prozac, Trazodone
-stable for discharge to inpatient substance rehab when bed available
Acute Kidney Injury
Metabolic acidosis
-per sons, patient recently started Ozempic.� Vomiting may be from this drug versus withdrawal
-hold Ozempic, FeNa pre-renal etiology
-Resolved status post IV fluids
URI
-flu and covid neg
-no fevers, supportive care as needed
Depression
-Psychiatry following, continue meds as per psychiatry
UTI ruled out
-IV Ceftriaxone given in ER
-stopped ceftriaxone, urine culture without growth
HTN
-exacerbated by anxiety
-new start metoprolol this admission
-better this morning
DM
-ISS low
-started Januvia
DVT prophylaxis�subcu heparin
Full code
Physical Exam
General: No acute distress
HEENT: Normocephalic, Atraumatic, EOMI, MMM
Respiratory: Clear to Auscultation bilaterally
Cardiac: Normal S1/S2, Regular Rate and Rhythm
GI: Soft, Nontender, Nondistended, Normal Bowel Sounds
Extremities: No Clubbing, Cyanosis, or Edema
Neuro: Nonfocal/Grossly Intact
Psych: Intermittently anxious
Derm: No Visible lesions
Anticipated Discharge: Today
Subjective/Interval History
-
Date of Service: October 07, 2023
No acute events.
Objective Data
-
Vital Signs:
Vital Signs
Temp Pulse Resp BP Pulse Ox
97.7 F 66 16 135/62 98
10/07/23 07:30 10/07/23 07:44 10/07/23 07:30 10/07/23 07:44 10/07/23 07:30
I&O
10/06/23 10/07/23 10/08/23
06:59 06:59 06:59
Intake Total 1620 / 1620 900 / 900
Balance 1620 / 1620 900 / 900
--- NOTE | 2023-10-07 10:48 | CM ---
Addendum entered by Cherry Snyder 10/07/23 14:23:
[facility] came and picked patient up.
Original Note:
Per Lizzette from [facility] bed available for today at [facility].
Insurance auth obtained by [facility].
Patient updated.
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
Plan: D/C today.
--- NOTE | 2023-10-07 11:56 | W.DCSUMMARY ---
Discharge Summary
Discharge Data
Date of Admission: 09/28/23
Date of Discharge: 10/07/23
-
Pending Results: No
Hospital Course
Discharge diagnosis:
Benzodiazepine withdrawal
Acute toxic metabolic encephalopathy
Acute kidney injury
Metabolic acidosis
Acute upper respiratory infection
Depression
Essential hypertension
Type 2 diabetes
Consults: Psychiatry
Hospital course: 63-year-old female with a past medical history of anxiety, depression, hypertension, and type 2 diabetes who was admitted for agitation, confusion, and vomiting. Patient apparently broke up with her boyfriend recently, and has not
had a place to stay. She has been living at family members houses. Last week she was at her daughter's house. Patient's daughter noticed that she had Valium, that was not prescribed. Her daughter took the Valium and flushed the pills down the
toilet.
Patient was treated for acute benzodiazepine withdrawal. She was seen in conjunction with psychiatry. She was treated with IV fluids, IV thiamine/folate, as needed Ativan.
Patient also had acute kidney injury. This is due to dehydration from vomiting. Her vomiting resolved, and her kidney function normalized with IV fluids.
Psychiatry adjusted her medications. Her Seroquel, duloxetine, oxcarbazepine, amitriptyline, and Zoloft were discontinued. Psychiatry recommended she take Prozac 10 mg at bedtime, trazodone 50 mg at bedtime.
Patient has essential hypertension. Her blood pressure was controlled on metoprolol succinate 25 mg daily. Her amlodipine and hydrochlorothiazide/losartan were discontinued.
Patient's withdrawal resolved. She is medically stable for discharge to acute substance rehab.
Disposition: Acute substance rehab
Discharge planning: Required 33 minutes
Discharge Plan
-
Patient Disposition: Psych Facility
Discharge Diagnosis/Procedures: Benzodiazepine withdrawal, acute toxic metabolic encephalopathy, acute kidney injury, metabolic acidosis, depression, type 2 diabetes
Condition: Good
Diet: Diabetic, Carb Controlled
Activity: As tolerated
Driving Restrictions: As prior to admission
Referrals:
Matt Antony MD [Family Provider] - in one week
Prescriptions:
New
trazodone 50 mg Tablet
50 mg PO HS Qty: 30 0RF
fluoxetine 10 mg Capsule
10 mg PO HS Qty: 30 0RF
nicotine 7 mg/24 hr Patch 24 Hour
7 mg transdermal DAILY Qty: 30 0RF
metoprolol succinate 25 mg Tablet Extended Release 24 Hr
25 mg PO DAILY Qty: 30 0RF
thiamine HCl (vitamin B1) 100 mg Tablet
100 mg PO BID Qty: 60 0RF
Continued
aspirin 81 mg Tablet,Delayed Release (Dr/Ec)
81 mg PO DAILY
Centrum Women 18-400 mg-mcg Tablet
1 tab PO DAILY
omega 3-ioy-feh-fish oil [Fish Oil] 1,000 mg (120 mg-180 mg) Capsule
1 cap PO TID
folic acid 1 mg Tablet
1 mg PO DAILY
Januvia 100 mg Tablet
100 mg PO DAILY
metformin 500 mg tablet
500 mg PO BID
Mounjaro 7.5 mg/0.5 mL pen injector
7.5 mg SC WEEKLY
Discontinued
fexofenadine 180 mg Tablet
180 mg PO DAILY
oxcarbazepine 150 mg Tablet
150 mg PO Q12H
quetiapine 100 mg Tablet
100 mg PO HS
amitriptyline 50 mg tablet
50 mg PO HS
losartan-hydrochlorothiazide 100-25 mg Tablet
1 tab PO DAILY
trazodone 100 mg Tablet
100 mg PO HS
pantoprazole 40 mg Tablet,Delayed Release (Dr/Ec)
40 mg PO DAILY
sertraline 50 mg Tablet
50 mg PO DAILY
duloxetine 60 mg Capsule,Delayed Release(Dr/Ec)
60 mg PO DAILY
quetiapine 50 mg Tablet
50 mg PO HS
Discharge Orders:
Discharge Patient (As Directed); Ordered 10/07/23
Ordered By: Toi Grant
Discharge Date and Time
Discharge Date/Time: 10/07/23 14:09
[2023-10-07 12:20] LABS: Glucose - Point of Care 178 mg/dl (70-99)
== END 2023-10-07 14:09 | DRG 896 ==
LOC: 4 WEST ACU 18:27
PROVIDERS: Emergency Medicine; Physician Assistant; Physician Assistant Medical; ADMITTING PHYSICIAN Student in an Organized Health Care Education/Training Program; ATTENDING PHYSICIAN Family Medicine; EMERGENCY PHYSICIAN Emergency Medicine; FAMILY PHYSICIAN Family Medicine
DX: F13.239 Sedative, hypnotic or anxiolytic dependence with withdrawal, unspecified (principal); G92.8 Other toxic encephalopathy; N17.9 Acute kidney failure, unspecified; E87.20 Acidosis, unspecified; N39.0 Urinary tract infection, site not specified; F32.A Depression, unspecified; I10 Essential (primary) hypertension; E11.9 Type 2 diabetes mellitus without complications; E86.0 Dehydration
CPT/HCPCS: 51701; 70450; 71250; 74176; 80048; 80053; 80076; 80143; 80179; 80306; 80307; 81003; 81015; 82077; 82570; 82607; 82962; 83036; 83605; 83690; 83735; 84100; 84132; 84300; 84439; 84443; 84484; 85018; 85025; 85027; 87040; 87086; 87502; 87811; 93005; 96361; 96374; 96375; 97116; 97162; 97166; 97530; 97535; 99285